=== PATIENT | female | born 1980 | race Caucasian/White ===

== ENCOUNTER 2016-05-08 10:52 | Emergency (ER) | payer OTHER ==
[2016-05-08 11:50] VITALS: BP 140/85
--- NOTE | 2016-05-08 12:12 | UC ---
osvaldo Blanco Timothy, scribed for Hever Spear MD on 05/08/16 at 1141 . Back Pain HPI - HPI Summary HPI Summary: Vandana Huber is a 36 yo female presenting to [facility] with 10/10 back pain for the past 2 weeks worse last night now back spasms (chronic) and with right arm pain with tingling in 3-5 fingers on the right hand. She states she occasionally gets shooting ear pains in the left ear. Her MHx includes UTI, asthma, bronchitis, and pneumonia. - History of Current Complaint Stated Complaint: BACK AND ARM PAIN Time Seen by Provider: 05/08/16 11:36 Hx Obtained From: Patient Hx Last Menstrual Period: 04/17/16 Onset/Duration: Gradual Onset, Lasting Days, Still Present, Worse Since - last night Timing: Constant Severity Initially: Moderate Severity Currently: Moderate Pain Intensity: 10 Pain Scale Used: 0-10 Numeric Back Pain: Is Diffuse, Radiates To - right arm Character: Aching Associated Signs And Symptoms: Positive: Tingling - 3-5 fingers - Allergies/Home Medications Allergies/Adverse Reactions: Allergies Allergy/AdvReac Type Severity Reaction Status Date / Time Tramadol Allergy Intermediate Swelling Verified 05/08/16 11:25 Of Face,Lips,& Throat Codeine AdvReac Intermediate vomit Verified 05/08/16 11:25 Home Medications: Home Medications Beclomethasone 40 MCG MDI(NF) [Qvar 40 MCG MDI(NF)] 1 - 2 puff INH PRN 05/08/16 [History] PMH/Surg Hx/FS Hx/Imm Hx - Additional Past Medical History Additional PMH: degenerative disc disease, arthritis Endocrine History Of: Denies: Diabetes, Thyroid Disease, Hyperthyroidism, Hypothyroidism, Dyslipidemia Cardiovascular History Of: Denies: Cardiac Disorders, Hypertension Respiratory History Of: Reports: Asthma, Bronchitis, Pneumonia Denies: COPD, Pulmonary Embolism GI/ History Of: Denies: Gastroesophageal Reflux, Ulcer, Gastrointestinal Bleed, Gall Bladder Disease, Kidney Stones, Diverticulitis, Renal Disease, Urosepsis Neurological History Of: Denies: TIA, CVA, Dementia, Seizures, Migraine Psychological History Of: Denies: Anxiety, Depression, Bipolar Disorder, Schizophrenia, Post Traumatic Stress Disorder Cancer History Of: Denies: Lung Cancer, Colorectal Cancer, Breast Cancer, Prostate Cancer, Cervical Cancer Other History Of: Negative For: HIV, Hepatitis C - Surgical History Surgical History: Yes Surgery Procedure, Year, and Place: Precancerous moles removed from her back. - Family History Known Family History: Positive: Hypertension, Diabetes, Other - CA, kidney stones - Social History Alcohol Use: Rare Substance Use Type: None Smoking Status (MU): Light Every Day Tobacco Smoker Type: Cigarettes Amount Used/How Often: 8-12 sigarettes/day Length of Time of Smoking/Using Tobacco: 14 years quit for ten years and started back a year ago. Have You Smoked in the Last Year: Yes When Did the Patient Quit Smoking/Using Tobacco: 7 YEARS Household Exposure Type: Cigarettes - Immunization History Most Recent Influenza Vaccination: season Most Recent Tetanus Shot: up to date Review of Systems Constitutional: Negative Skin: Negative Eyes: Negative ENT: Ear Ache - shooting left ear pain Respiratory: Negative Cardiovascular: Negative Gastrointestinal: Negative Genitourinary: Negative Motor: Negative Neurovascular: Negative Musculoskeletal: Other: - back pain radiating into right arm Neurological: Paresthesia - in 3 fingers of right hand Psychological: Negative All Other Systems Reviewed And Are Negative: Yes Physical Exam Triage Information Reviewed: Yes Vital Signs: Initial Vital Signs Temp 98.6 F 05/08/16 11:28 Pulse 78 05/08/16 11:28 Resp 18 05/08/16 11:28 BP 140/85 05/08/16 11:28 Pulse Ox 98 05/08/16 11:28 Vital Signs Reviewed: Yes - Additional Comments VITAL SIGNS: Reviewed. GENERAL: Patient is a well developed and nourished who is lying comfortable in the stretcher. Patient is not in any acute respiratory distress. HEAD AND FACE: Normocephalic EYES: PERRLA, EOMI x 2. EARS: Hearing grossly intact. MOUTH: Oropharynx within normal limits. NECK: Supple, trachea is midline, no adenopathy, no JVD, no carotid bruit. CHEST: Symmetric, no tenderness at palpation LUNGS: Clear to auscultation bilaterally. No wheezing or crackles. CVS: Regular rate and rhythm, S1 and S2 present, no murmurs or gallops appreciated. ABDOMEN: Soft, non-tender. Bowel sounds are normal. No abdominal abnormal pulsations. EXTREMITIES: FROM in all major joints, no edema, no cyanosis or clubbing. NEURO: Alert and oriented x 3. No acute neurological deficits. Speech is normal and follows commands. SKIN: Dry and warm Back: There is no ecchymosis, no deformity, positive paraspinal muscle tenderness in the lumbar and thoracic spine. No vertebral tenderness. No saddle anesthesia. Refuses rectal exam. Straight test is negative. Back Pain Course/Dx - Course Course Of Treatment: Vadnana Huber is a 36 yo female presenting to [facility] with 10/10 back pain for the past 2 weeks worse last night now back spasms (chronic) and with right arm pain with tingling in 3-5 fingers on the right hand. She states she occasionally gets shooting ear pains in the left ear. Her MHx includes UTI, asthma, bronchitis, and pneumonia. I seems the patient has aggrabated her lumbago. She also having and upper back pain mostly in the right side of the upper back. She denies any urinary or fecal dysfunction. She will be given Robaxin and medrol dose pack for her pain. She will continue taking Ibuprofen as needed. At this point I discussed all the findings with the patient. Patient was instructed to return to the emergency room immediately if any of the symptoms return or worsens. Patient understands and agrees. Patient is able to ambulate in the ER. Plan of care was discussed with the patient and patient understands and agrees. All questions were answered at patient satisfaction. There were no further complaints or concerns. Neurological exam before discharge: Patient is alert and oriented x 3. No acute neurological deficits. Patient is hemodynamically stable. Patient is to follow up with primary care physician in the next 2 3 days. He understands and agrees. - Differential Dx/Diagnosis Differential Diagnosis/HQI/PQRI: Herniated Disc, Strain, Sprain Provider Diagnoses: Lower and upper back strain. Discharge - Discharge Plan Condition: Stable Disposition: HOME Prescriptions: Methocarbamol TAB* [Robaxin TAB*] 500 mg PO TID #9 tab Methylprednisolone [Medrol Dosepak 4 MG*] 0 mg PO .SEE MAURO INSTRUCTION #1 mauro Patient Education Materials: Back Pain (ED), Lower Back Exercises (ED) Referrals: Aniceto Bliss MD [Primary Care Provider] - 2 Days Additional Instructions: Please follow up with your primary care physician regarding your visit to urgent care today. Return to urgent care or the emergency department with any new or recurring symptoms. The documentation as recorded by the osvaldo arias Timothy accurately reflects the service I personally performed and the decisions made by me, Hever Spear MD.
== END 2016-05-08 12:30 | disposition home or self-care (01) ==
LOC: UCEAST 10:52
DX: S39.012A Strain of muscle, fascia and tendon of lower back, initial encounter (principal); S29.012A Strain of muscle and tendon of back wall of thorax, initial encounter; X58.XXXA Exposure to other specified factors, initial encounter; Y93.9 Activity, unspecified; Y92.9 Unspecified place or not applicable; Z87.440 Personal history of urinary (tract) infections; J45.909 Unspecified asthma, uncomplicated; Z88.5 Allergy status to narcotic agent; F17.210 Nicotine dependence, cigarettes, uncomplicated
CPT/HCPCS: 99212; G0463

== ENCOUNTER 2016-05-18 16:14 | Emergency (ER) | payer OTHER ==
[2016-05-18 16:48] VITALS: BP 122/71
--- NOTE | 2016-05-18 16:52 | UC ---
Shoulder Pain HPI - HPI Summary HPI Summary: PT WITH RIGHT POSTERIOR SHOULDER PAIN AND PARESTHESIAS IN RIGHT ARM FOR SEVERAL WEEKS. HAS BEEN SEEN FOR THIS 3 TIMES ALREADY - TX WITH MEDROL DOSE PACK, PREDNISONE, MUSCLE RELAXERS WITH NO RELIEF. HAS PCP APPT IN 2 DAYS. - History of Current Complaint Chief Complaint: UCUpperExtremity Stated Complaint: SHOULDER PAIN Time Seen by Provider: 05/18/16 16:45 Hx Obtained From: Patient Hx Last Menstrual Period: HAS IT NOW Onset/Duration: Sudden Onset, Lasting Weeks, Still Present Timing: Constant Severity Initially: Moderate Severity Currently: Severe Pain Intensity: 10 - IN NO ACUTE DISTRESS Pain Scale Used: 0-10 Numeric Character: Spasmodic, Burning Aggravating Factor(s): Nothing Alleviating Factor(s): Nothing Associated Signs And Symptoms: Positive: Numbness/Tingling Related History: Dominant Hand Right - Allergies/Home Medications Allergies/Adverse Reactions: Allergies Allergy/AdvReac Type Severity Reaction Status Date / Time Tramadol Allergy Intermediate Swelling Verified 05/18/16 16:38 Of Face,Lips,& Throat Codeine AdvReac Intermediate vomit Verified 05/18/16 16:38 Home Medications: Home Medications Norethindrone (Contraceptive) [Norethindrone] 1 tab PO QAM 05/18/16 [History Confirmed 05/18/16] predniSONE TAB* [Deltasone TAB*] 1 tab PO DAILY 05/18/16 [History Confirmed 03/05] PMH/Surg Hx/FS Hx/Imm Hx Endocrine History Of: Denies: Diabetes, Thyroid Disease, Hyperthyroidism, Hypothyroidism, Dyslipidemia Cardiovascular History Of: Denies: Cardiac Disorders, Hypertension Respiratory History Of: Reports: Asthma, Bronchitis, Pneumonia Denies: COPD, Pulmonary Embolism GI/ History Of: Denies: Gastroesophageal Reflux, Ulcer, Gastrointestinal Bleed, Gall Bladder Disease, Kidney Stones, Diverticulitis, Renal Disease, Urosepsis Neurological History Of: Denies: TIA, CVA, Dementia, Seizures, Migraine Psychological History Of: Denies: Anxiety, Depression, Bipolar Disorder, Schizophrenia, Post Traumatic Stress Disorder Cancer History Of: Denies: Lung Cancer, Colorectal Cancer, Breast Cancer, Prostate Cancer, Cervical Cancer Other History Of: Negative For: HIV, Hepatitis C - Surgical History Surgical History: Yes Surgery Procedure, Year, and Place: Precancerous moles removed from her back. - Family History Known Family History: Positive: Hypertension, Diabetes, Other - CA, kidney stones - Social History Alcohol Use: Rare Substance Use Type: None Smoking Status (MU): Heavy Every Day Tobacco Smoker Type: Cigarettes Amount Used/How Often: 8-12 sigarettes/day Length of Time of Smoking/Using Tobacco: 1/2 PPD. 2+ YEARS Have You Smoked in the Last Year: Yes When Did the Patient Quit Smoking/Using Tobacco: 7 YEARS Household Exposure Type: Cigarettes - Immunization History Most Recent Influenza Vaccination: season Most Recent Tetanus Shot: up to date Review of Systems Constitutional: Negative Skin: Negative Respiratory: Negative Cardiovascular: Negative Gastrointestinal: Negative Musculoskeletal: Myalgia Neurological: Paresthesia, Numbness All Other Systems Reviewed And Are Negative: Yes Physical Exam Triage Information Reviewed: Yes Appearance: Well-Appearing, No Pain Distress, Well-Nourished Vital Signs: Initial Vital Signs Temp 98.6 F 05/18/16 16:42 Pulse 80 05/18/16 16:42 Resp 16 05/18/16 16:42 BP 122/71 05/18/16 16:42 Pulse Ox 100 05/18/16 16:42 Eyes: Positive: Conjunctiva Clear ENT: Positive: Hearing grossly normal Neck: Positive: Supple Respiratory: Positive: No respiratory distress, No accessory muscle use Cardiovascular: Positive: Pulses Normal Abdomen Description: Positive: Soft Musculoskeletal: Positive: ROM Intact, No Edema, Other: - TTP DIFFUSELY OVER RIGHT SHOULDER. Neurological: Positive: Alert, Other: - POSITIVE TINELS AND PHALENS OVER ELBOW AND WRIST Psychological: Positive: Age Appropriate Behavior Skin: Negative: rashes Shoulder Course/Dx - Differential Dx/Diagnosis Differential Diagnosis/HQI/PQRI: Thoracic Outlet Syndrome Provider Diagnoses: PARESTHESIAS Discharge - Discharge Plan Condition: Stable Disposition: HOME Prescriptions: Gabapentin CAP(*) [Neurontin 300 CAP(*)] 300 mg PO TID #60 cap Hydrocodone-Acetaminophen [Lorcet 5-325 mg] 1 tab PO QID PRN #20 tab MDD 4 PRN Reason: Pain Ketorolac TAB (NF) [Toradol TAB (NF)] 10 mg PO Q8H #15 tab Patient Education Materials: Paresthesia (ED) Referrals: Aniceto Bliss MD [Primary Care Provider] - 2 Days Aniceto Jean MD [Medical Doctor] - 1 Week Additional Instructions: CALL [facility] MORNING FOR AN APPT TO BE EVALUATED.
[2016-05-18] MEDS ORDERED: Ketorolac INJ* 60 MG/2 ML VIAL IM ONE (17:29)
== END 2016-05-18 18:00 | disposition home or self-care (01) ==
LOC: UCEAST 16:14
DX: R20.2 Paresthesia of skin (principal); M25.511 Pain in right shoulder; Z88.5 Allergy status to narcotic agent; Z87.891 Personal history of nicotine dependence
CPT/HCPCS: 96372; 99213; G0463; J1885

== ENCOUNTER 2016-06-13 07:41 | Observation (INO) | payer OTHER ==
[~2016-06-13 07:41] MED LIST: Buffered Lidocaine 1% SYRIN* 3 ML/SYR SYRINGE INTRADERM ONE; Dexamethasone IV* 4 MG/ML 1 ML (4 MG) IV SLOW PU ONE; Dexamethasone IV* 4 MG/ML 1 ML (4 MG) ONE; Famotidine IV* 10 MG/ML 2 ML (20 mg) IV ONE; Famotidine IV* 10 MG/ML 2 ML (20 mg) ONE; Levalbuterol 0.63MG/3ML NEB INH ONE; Levalbuterol 1.25MG/0.5ML NEB ONE; Metoclopramide TAB* 10 MG PO ONE; ceFAZolin 2 GM PREMIX(*) 2 GM/50 ML BAG IVPB ONE
[2016-06-13] MEDS ORDERED: Lidocain 1% EPI 1:100,000 * 30 ML MDV ONE (08:20)
[2016-06-13] MEDS ORDERED: Bacitracin IV* 50,000 UNITS INJ ONE (08:21)
[2016-06-13] MEDS ORDERED: Thrombin 5,000 UNITS* 1 APPLIC KIT - topical use - TOPICAL ONE (08:21)
[2016-06-13 08:36] LABS: UR Preg Kit Lot# 6030156
[2016-06-13 08:37] LABS: Manual Entry Verification AS; UR Preg Internal Control QC Line Present
[2016-06-13] MEDS ORDERED: Rocuronium* 10 MG/ML VIAL ONE (08:46)
[2016-06-13] MEDS ORDERED: Propofol* 10 MG/ML 20 ML BTL IV PUSH ONE (08:46)
[2016-06-13] MEDS ORDERED: Midazolam* 1 MG/ML 2 ML VIAL (2 MG) ONE (08:46)
[2016-06-13] MEDS ORDERED: Lidocaine 2% PF * 5 ML VIAL ONE (08:46)
[2016-06-13] MEDS ORDERED: fentaNYL* 50 MCG/ML 5 ML VIAL (250 MCG VIAL) ONE ×2 (08:47→10:59)
[2016-06-13] MEDS ORDERED: PROCHLORPERAZINE INJ 5 MG/ML 2 ML VIAL IV PRN (08:53)
[2016-06-13] MEDS ORDERED: HYDROcodone/ACETAMIN 5-325 MG* 1 TAB PO PRN ×2 (08:53→10:36)
[2016-06-13] MEDS ORDERED: Levalbuterol 0.63MG/3ML NEB INH PRN (08:53)
[2016-06-13] MEDS ORDERED: Phenylephrine IV* 40 MCG/ML 10 ML SYRINGE ONE (09:31)
[2016-06-13] MEDS ORDERED: Ondansetron INJ* 2 MG/ML VIAL ONE (09:45)
[2016-06-13] MEDS ORDERED: EPHEDrine (Pressors)* 50 MG/ML VIAL ONE (09:57)
[2016-06-13] MEDS ORDERED: Neostigmine Methylsulfate* 2 MG/2 ML SYRINGE ONE (10:34)
[2016-06-13] MEDS ORDERED: Glycopyrrolate IV* 0.2 MG/ML 1 ML VIAL ONE (10:34)
[2016-06-13] MEDS ORDERED: Acetaminophen TAB* 325 MG PO PRN (10:36)
[2016-06-13] MEDS ORDERED: Magnesium Hydroxide LIQ* 30 ML UDC PO PRN (10:36)
[2016-06-13] MEDS ORDERED: Zolpidem TAB* 10 MG PO PRN (10:36)
[2016-06-13] MEDS ORDERED: Ondansetron INJ* 2 MG/ML VIAL IV PRN (10:36)
[2016-06-13] MEDS ORDERED: oxyCODONE/Acetamin 5/325 MG* TAB ONE (10:59)
[2016-06-13] MEDS: oxyCODONE/Acetamin 5/325 MG* TAB PO PRN ×3 (11:03→19:13)
[2016-06-13] MEDS: fentaNYL* 50 MCG/ML 2 ML VIAL (100 MCG VIAL) IV PRN ×4 (11:05→12:12)
[2016-06-13] MEDS ORDERED: Morphine INJ* 2 MG/ML 1 ML SYRINGE IV PRN (11:14)
[2016-06-13] MEDS ORDERED: PROCHLORPERAZINE INJ 5 MG/ML 2 ML VIAL ONE (11:48)
--- NOTE | 2016-06-13 13:06 | RAD ---
Indication: RIGHT posterior C6-C7 cervical discectomy. Comparison: May 27, 2016 MRI. Technique: Intraoperative crosstable lateral radiographs of the cervical spine. Report: 0955 hours exam: Endotracheal tube and probable temperature sensor noted. Posterior instrument at the cephalocaudal level of the C6 spinous process. Conspicuity of the C6-C7 disc level is limited due to superimposed tissues. Negative for cervical spine subluxation at any level. 1035 hours exam: Negative for cervical spine subluxation at any level. Previous metallic instrument no longer visualized. Conspicuity of the C6-C7 disc level is limited due to superimposed tissues. Potential surgical drain within the posterior soft tissues however this could also represent an extrinsic device. IMPRESSION: Intraoperative control films.
[2016-06-13] MEDS ORDERED: Mouth Piece, Nicotine* 1 EACH CARTRIDGE ONE (14:08)
[2016-06-13] MEDS ORDERED: Nicotine Inhaler* 10 MG AMP ONE (14:08)
[2016-06-13] MEDS ORDERED: Morphine INJ* 4 MG/ML 1 ML SYRINGE ONE (14:08)
[2016-06-13] MEDS ORDERED: Nicotine Inhaler* 10 MG AMP INH PRN (14:17)
[2016-06-13] MEDS ORDERED: Morphine INJ* 4 MG/ML 1 ML SYRINGE IV PRN (14:40)
[2016-06-13] MEDS ORDERED: Cyclobenzaprine TAB* 10 MG PO PRN (16:01)
[2016-06-14] MEDS: oxyCODONE/Acetamin 5/325 MG* TAB PO PRN ×4 (00:22→12:28)
[2016-06-14 11:55] VITALS: BP 103/54
--- NOTE | 2016-06-14 12:11 | PN ---
Progress Note - Progress Note Note: NEUROSURGERY PROGRESS NOTE Some neck pain at incision site. Right arm/hand symptoms markedly improved from preop. Some residual tingling. Taking PO and pain meds helping. AVSS NAD AAO FROM neck Dressing C/D/I GEOVANY with small s/s fluid Intact neuro s/p cerv LF. -discharge to home Gigi Mann MD, [facility] Neurosurgery (covering [place])
--- NOTE | 2016-06-26 21:44 | OP ---
DATE OF OPERATION: 06/13/16 - ROOM #331 DATE OF : 82 SURGEON: Dr. Aniceto Marcelo. CARGO BRACER: DEXTER Hu ANESTHESIOLOGIST: Dagmar Pelletier MD ANESTHESIA: General. PRE-OP DIAGNOSIS: Herniated nucleus pulposus, C6-7 on the right. POST-OP DIAGNOSIS: Herniated nucleus pulposus, C6-7 on the right. OPERATIVE PROCEDURE: Posterior cervical diskectomy, C6-7 on the right with microdissection. DESCRIPTION OF PROCEDURE: After satisfactory general anesthesia was obtained, the patient was placed on the operating table in a prone position with the chest supported on chest rolls and the head maintained with slight neck flexion utilizing the Lopez head rest. The posterior cervical region was then clipped, prepped, and draped in a manner for posterior cervical diskectomy and a skin incision outlined from C6 to C7. This incision was infiltrated with 1% Xylocaine with epinephrine after which it was turned down sharply to the level of the cervical fascia. The fascia was divided along the spinous processes of C6 and C7 and the paraspinal musculature stripped away from these posterior elements using the periosteal elevator and monopolar cautery. An intraoperative x-ray was obtained verifying proper interspace localization after which a partial hemilaminectomy was carried out by removing the inferior aspect of the C6 lamina and the medial aspect of the facet complex with a combination of the Midas Chepe drill and Kerrison rongeurs. A generous foraminotomy was carried out over the C7 nerve root. At this point of the surgery, the operating microscope was brought into the field and the remainder of the procedure was done under microscopic visualization. Utilizing microdissection, the epidural venous structures were coagulated and divided. Projecting into the axillary region of the exposure was a subcapsular herniation of the disk material. The thinly stretched posterior longitudinal ligament was opened and multiple fragments of the disk material were removed from beneath the C7 nerve root. It was felt that an excellent decompression had been achieved. After assuring adequate hemostasis, the wound was thoroughly irrigated, after which a piece of Gelfoam was placed over the laminectomy defect. A drain was placed in the epidural space and tunneled out toward the right side. The fascia was then reapproximated with 0 Vicryl suture. The subcutaneous tissue was closed with 2-0 Vicryl suture, and the skin closed with skin clips. The estimated blood loss was less than 50 cc, and the final sponge, padding, and needle counts were correct. The patient was taken to the recovery room, extubated and in stable condition. [id number]/[facility] #: [id number] MTDD
== END 2016-06-14 13:35 | disposition home or self-care (01) ==
LOC: OR 07:41 → SSU 10:36
PROVIDERS: ADMIT Neurological Surgery; ATTEND Neurological Surgery
DX: M50.123 Cervical disc disorder at C6-C7 level with radiculopathy (principal); F17.200 Nicotine dependence, unspecified, uncomplicated; Z88.5 Allergy status to narcotic agent; J45.909 Unspecified asthma, uncomplicated
CPT/HCPCS: 72020; 81025; 88304; A9270-GY; J0690; J0780; J1100; J2250; J2270; J2405; J2704; J3010

== ENCOUNTER 2016-06-15 07:44 | Emergency (ER) | payer OTHER ==
--- NOTE | 2016-06-15 08:45 | ED ---
Neck Pain - History of Current Complaint Chief Complaint: EDBackInjuryPain Stated Complaint: DIZZY,NAUSEA, PAIN Time Seen by Provider: 06/15/16 07:48 Hx Obtained From: Patient Hx Last Menstrual Period: HAS IT NOW Onset/Duration Of Injury/Symptoms: Hours - awoke this am with severe R sided neck and upper shoulder pain. She is s/p Discectomy C6-C7 2 days ago. Pain was managable with percocet until this am. She did take 2 percocet at 6am this am with some relief, but caused some nausea. Mechanism Of Injury: No Known Trauma Timing: Constant Onset/Duration: Started hours ago - 3-4 hours Pain Intensity: 8 Location: Discrete At: - R side neck and shoulder Character: Stiff, Spasmotic, Throbbing Aggravating Factors: Position, Movement Alleviating Factors: Position, Other: - percocet Associated Signs & Symptoms: Positive: Negative. Negative: Fever Related History: Similar Episode/Dx As: - disc disease - Allergies/Home Medications Allergies/Adverse Reactions: Allergies Allergy/AdvReac Type Severity Reaction Status Date / Time Tramadol Allergy Intermediate Swelling Verified 06/13/16 08:04 Of Face,Lips,& Throat Codeine AdvReac Intermediate vomit Verified 06/13/16 08:04 PMH/Surg Hx/FS Hx/Imm Hx Previously Healthy: Yes Endocrine/Hematology History: Reports: Hx Anemia - in the past Denies: Hx Diabetes, Hx Thyroid Disease Cardiovascular History: Denies: Hx Hypertension, Hx Pacemaker/ICD Respiratory History: Reports: Hx Asthma - will bring inhalers, Hx Pneumonia Denies: Hx Chronic Obstructive Pulmonary Disease (COPD), Hx Lung Cancer, Hx Pulmonary Embolism GI History: Reports: Hx Gastroesophageal Reflux Disease, Other GI Disorders - sdifficulty swallowing at times Denies: Hx Gall Bladder Disease, Hx Gastrointestinal Bleed, Hx Ulcer, Hx Urosepsis History: Denies: Hx Kidney Stones, Hx Renal Disease Musculoskeletal History: Reports: Hx Arthritis - right knee and foot Denies: Hx Tendonitis, Other Musculoskeletal History Sensory History: Denies: Hx Contacts or Glasses, Hx Hearing Aid Opthamlomology History: Denies: Hx Contacts or Glasses Neurological History: Reports: Hx Headaches, Hx Migraine Denies: Hx Dementia, Hx Seizures, Hx Transient Ischemic Attacks (TIA) Psychiatric History: Reports: Hx Anxiety, Hx Depression Denies: Hx Panic Disorder, Hx Schizophrenia, Hx Bipolar Disorder - Surgical History Surgery Procedure, Year, and Place: Precancerous moles removed from her back. Hx Anesthesia Reactions: No Infectious Disease History: No Infectious Disease History: Denies: Hx Clostridium Difficile, Hx Hepatitis, Hx Human Immunodeficiency Virus (HIV), Hx of Known/Suspected MRSA, Hx Shingles, Hx Tuberculosis, Hx Known/ Suspected VRE, Hx Known/Suspected VRSA, History Other Infectious Disease, Traveled Outside the [place] in Last 30 Days - Family History Known Family History: Positive: Hypertension, Diabetes, Other - CA, kidney stones - Social History Occupation: Employed Full-time - [employer] Lives: With Family Alcohol Use: Rare Alcohol Amount: social glasses of wine Substance Use Type: Reports: Marijuana Substance Use Comment - Amount & Last Used: to help her sleep Smoking Status (MU): Heavy Every Day Tobacco Smoker Type: Cigarettes Amount Used/How Often: .pack aday for 10 years Length of Time of Smoking/Using Tobacco: 1/2 PPD. 2+ YEARS Have You Smoked in the Last Year: Yes Cessation Counseling: Patient Advised to Stop Review of Systems Constitutional: Negative Negative: Fever, Chills Cardiovascular: Negative Negative: Palpitations, Chest Pain Respiratory: Negative Negative: Shortness Of Breath, Cough Positive: Nausea. Negative: Abdominal Pain Positive: Decreased ROM - C-spine Skin: Negative Negative: Rash Positive: Weakness - R arm x months Psychological: Normal All Other Systems Reviewed And Are Negative: Yes Physical Exam Triage Information Reviewed: Yes Vital Signs On Initial Exam: Initial Vitals Temp Pulse Resp BP Pulse Ox 98.1 F 66 18 97/54 99 06/15/16 07:47 06/15/16 07:47 06/15/16 07:47 06/15/16 07:47 06/15/16 07:47 Vital Signs Reviewed: Yes Appearance: Positive: Well-Appearing, No Pain Distress - pt is sleeping lightly until approached, Well-Nourished Skin: Positive: Warm, Skin Color Reflects Adequate Perfusion, Dry, Other - no redness or drainage surgical site post neck (dry clean dressing intact) Neck: Positive: Other: - decreased ROM, pt keeps neck in POC, does not flex or ext neck d/t pain Respiratory/Lung Sounds: Positive: Clear to Auscultation Cardiovascular: Positive: Normal, RRR, Pulses are Symmetrical in both Upper and Lower Extremities Neurological: Positive: Normal, Sensory/Motor Intact, Alert, Oriented to Person Place, Time Psychiatric: Positive: Normal Diagnostics - Vital Signs Vital Signs Temp Pulse Resp BP Pulse Ox 06/15/16 07:50 98.1 F 66 18 97/54 98 06/15/16 07:47 98.1 F 66 18 97/54 99 - Laboratory Result Diagrams: 06/15/16 09:20 Lab Statement: Any lab studies that have been ordered have been reviewed, and results considered in the medical decision making process. Re-Evaluation - Re-Evaluation First Eval Change: Unchanged - pt complains of nausea, no change in pain will Rx zofran. Pat will take flexeril from own medications she brought with her Second Eval Change: Improved - resting quietly. states pain has improved, no nausea at this time Neck Course/Dx - Course Course Of Treatment: iStop Reference #: [id number] - Diagnoses Differential Dx/HQI/PQRI: Positive: Other - muscle spasm post surgical pain cellulitis Provider Diagnoses: Neck pain on right side - Physician Notifications Discussed Care Of Patient With: neck pain Discharge - Discharge Plan Condition: Improved Disposition: HOME Prescriptions: Ondansetron ODT TAB* [Zofran 4 MG Odt TAB*] 4 mg PO Q6H PRN #24 tab.odt PRN Reason: Nausea Patient Education Materials: Neck Pain (ED) Referrals: Aniceto Bliss MD [Primary Care Provider] - Aniceto Marcelo MD [Medical Doctor] - (as previously scheduled) Additional Instructions: Take percocet and flexeril as prescribed Use zofran for nausea as prescribed apply heat to shoulders for muscle spasm Return to ER if you develop a fever or pain increases or your bandage becomes soiled or wet.
[2016-06-15] MEDS ORDERED: Ondansetron INJ* 2 MG/ML VIAL IV ONE (09:26)
[2016-06-15 09:29] LABS: Hematocrit 39 % (35-47); Hemoglobin 12.7 g/dl (12.0-16.0); Mean Corpuscular HGB Conc 33 g/dl (31-36); Mean Corpuscular Hemoglobin 28 pg (27-31); Mean Corpuscular Volume 86 fL (80-97); Mean Platelet Volume 8 um3 (7.4-10.4); Red Blood Count 4.52 10^6/ul (4.0-5.4); Red Cell Distribution Width 14 % (10.5-15); White Blood Count 11.1 10^3/ul (3.5-10.8)
[2016-06-15 09:35] LABS: Add Diff/Slide Review? Slide Review Added; Comments Flag Yes
[2016-06-15 11:39] VITALS: BP 119/67
== END 2016-06-15 11:38 | disposition home or self-care (01) ==
LOC: ED 07:44
DX: R42 Dizziness and giddiness (principal); R11.0 Nausea; F17.210 Nicotine dependence, cigarettes, uncomplicated; M54.2 Cervicalgia
CPT/HCPCS: 36415; 85025; 96374; 99283; J2405

== ENCOUNTER 2016-07-01 14:44 | Emergency (ER) | payer OTHER ==
[2016-07-01] MEDS ORDERED: NS 0.9% 1000 ML* 1,000 ML IV ONE (17:16)
[2016-07-01] MEDS ORDERED: Albuterol/Ipratropium NEB.SOL* Albuterol 2.5 MG/Ipratropium 0.5 MG 3 ML INH ONE (17:17)
[2016-07-01 17:25] LABS: Hematocrit 43 % (35-47); Hemoglobin 14.2 g/dl (12.0-16.0); Mean Corpuscular HGB Conc 33 g/dl (31-36); Mean Corpuscular Hemoglobin 29 pg (27-31); Mean Corpuscular Volume 85 fL (80-97); Mean Platelet Volume 8 um3 (7.4-10.4); Red Blood Count 4.99 10^6/ul (4.0-5.4); Red Cell Distribution Width 14 % (10.5-15); White Blood Count 7.6 10^3/ul (3.5-10.8)
[2016-07-01 17:46] LABS: ALT 8 U/L (7-52); AST 10 U/L (13-39); Albumin 4.1 g/dL (3.2-5.2); Alkaline Phosphatase 64 U/L (34-104); Anion Gap 3 mmol/L (2-11); BUN/Creatinine Ratio 16.3 (8-20); Blood Urea Nitrogen 14 mg/dL (6-24); CO2 Carbon Dioxide 29 mmol/L (22-32); Calcium 8.9 mg/dL (8.6-10.3); Chloride 105 mmol/L (101-111); Creatine Kinase 39 U/L (10-223); EGFR African American 96.6 (>60); EGFR Non-African American 75.1 (>60); Globulin 2.8 g/dL (2-4); Glucose 90 mg/dL (70-100); Potassium 3.9 mmol/L (3.5-5.0); Sodium 137 mmol/L (133-145); Total Protein 6.9 g/dL (6.4-8.9)
--- NOTE | 2016-07-01 18:59 | RAD ---
Indication: Shortness of breath. 2 views of the chest including dual energy PA views demonstrate no mediastinal shift. Heart is of normal size and configuration. Lung stahl demonstrate no pleural fluid, pneumonia or pneumothorax. No changes noted since November 01, 2014. IMPRESSION: No active cardiopulmonary disease is noted.
[2016-07-01] MEDS ORDERED: methylPREDNISolone 125 MG* 2 ML VIAL IV ONE (19:19)
--- NOTE | 2016-07-01 19:49 | ED ---
Tee Blanco Michael, scribed for Kristopher Martinez MD on 07/01/16 at 1702 . HPI Chest Pain - HPI Summary HPI Summary: 36 y/o female comes to the ED presenting with shortness of breath for 1 day. Associated with chest tightness and heaviness. She also c/o cough, and nausea. She denies fever, bilater LE pain/swelling, vomiting, diarrhea, and abd pain. The pt recently had neck surgery to fix a ruptured disc on 06/13/16. She also takes control. The FHx is significant for blood clots. - History of Current Complaint Chief Complaint: EDChestWallPain Time Seen by Provider: 07/01/16 16:42 Hx Obtained From: Patient, Medical Records Onset/Duration: Started Days Ago Timing: Constant Initial Severity: Mild Current Severity: Mild Pain Intensity: 0 Pain Scale Used: 0-10 Numeric Chest Pain Location: Diffuse Chest Pain Radiates: No Character: Heaviness, Tightness Aggravating Factor(s): Nothing Alleviating Factor(s): Nothing Associated Signs and Symptoms: Positive: Negative - fever, bilater LE pain/ swelling, vomiting, diarrhea, and abd pain, Chest Pain, Shortness of Breath, Nausea, Cough - Additional Pertinent History Primary Care Physician: [id number] - Allergy/Home Medications Allergies/Adverse Reactions: Allergies Allergy/AdvReac Type Severity Reaction Status Date / Time Tramadol Allergy Intermediate Swelling Verified 06/13/16 08:04 Of Face,Lips,& Throat Codeine AdvReac Intermediate vomit Verified 06/13/16 08:04 PMH/Surg Hx/FS Hx/Imm Hx Endocrine/Hematology History: Reports: Hx Anemia - in the past Denies: Hx Diabetes, Hx Thyroid Disease Cardiovascular History: Denies: Hx Hypertension, Hx Pacemaker/ICD Respiratory History: Reports: Hx Asthma - will bring inhalers, Hx Pneumonia Denies: Hx Chronic Obstructive Pulmonary Disease (COPD), Hx Lung Cancer, Hx Pulmonary Embolism GI History: Reports: Hx Gastroesophageal Reflux Disease, Other GI Disorders - sdifficulty swallowing at times Denies: Hx Gall Bladder Disease, Hx Gastrointestinal Bleed, Hx Ulcer, Hx Urosepsis History: Denies: Hx Kidney Stones, Hx Renal Disease Musculoskeletal History: Reports: Hx Arthritis - right knee and foot Denies: Hx Tendonitis, Other Musculoskeletal History Sensory History: Denies: Hx Contacts or Glasses, Hx Hearing Aid Opthamlomology History: Denies: Hx Contacts or Glasses Neurological History: Reports: Hx Headaches, Hx Migraine Denies: Hx Dementia, Hx Seizures, Hx Transient Ischemic Attacks (TIA) Psychiatric History: Reports: Hx Anxiety, Hx Depression Denies: Hx Panic Disorder, Hx Schizophrenia, Hx Bipolar Disorder - Surgical History Surgery Procedure, Year, and Place: Precancerous moles removed from her back. Hx Anesthesia Reactions: No Infectious Disease History: Denies: Hx Clostridium Difficile, Hx Hepatitis, Hx Human Immunodeficiency Virus (HIV), Hx of Known/Suspected MRSA, Hx Shingles, Hx Tuberculosis, Hx Known/ Suspected VRE, Hx Known/Suspected VRSA, History Other Infectious Disease, Traveled Outside the [place] in Last 30 Days - Family History Known Family History: Positive: Hypertension, Diabetes, Other - CA, kidney stones, blood clots - Social History Occupation: Unemployed Lives: With Family Alcohol Use: Rare Alcohol Amount: social glasses of wine Substance Use Type: Reports: Marijuana Substance Use Comment - Amount & Last Used: to help her sleep Smoking Status (MU): Heavy Every Day Tobacco Smoker Type: Cigarettes Amount Used/How Often: .pack aday for 10 years Length of Time of Smoking/Using Tobacco: 1/2 PPD. 2+ YEARS Have You Smoked in the Last Year: Yes Review of Systems Positive: Shortness Of Breath, Cough Positive: Nausea All Other Systems Reviewed And Are Negative: Yes Physical Exam Triage Information Reviewed: Yes Vital Signs On Initial Exam: Initial Vitals Temp Resp BP Pulse Ox 98.2 F 20 140/80 99 07/01/16 14:46 07/01/16 14:46 07/01/16 14:46 07/01/16 14:46 Vital Signs Reviewed: Yes Appearance: Positive: Well-Appearing - comfortable and talking in full sentences., No Pain Distress, Well-Nourished Skin: Positive: Warm, Skin Color Reflects Adequate Perfusion, Dry Head/Face: Positive: Normal Head/Face Inspection Eyes: Positive: EOMI, BRYAN, Conjunctiva Clear ENT: Positive: Pharynx normal, TMs normal Neck: Positive: Supple, Nontender Respiratory/Lung Sounds: Positive: Clear to Auscultation, Breath Sounds Present. Negative: Rales, Rhonchi, Wheezes Cardiovascular: Positive: RRR, Pulses are Symmetrical in both Upper and Lower Extremities. Negative: Murmur, Rub Abdomen Description: Positive: Nontender, No Organomegaly, Soft. Negative: Distended, Guarding, Peritoneal Signs Bowel Sounds: Positive: Present Musculoskeletal: Positive: Strength/ROM Intact Neurological: Positive: Sensory/Motor Intact, Alert, Oriented to Person Place, Time, Normal Gait. Negative: Cerebellar Dysfunction Psychiatric: Positive: Affect/Mood Appropriate Diagnostics - Vital Signs Vital Signs Temp Pulse Resp BP Pulse Ox 07/01/16 15:50 97.6 F 80 16 123/68 100 07/01/16 14:46 98.2 F 20 140/80 99 - Laboratory Lab Results: Lab Results 07/01/16 07/01/16 07/01/16 Range/Units 17:11 17:11 17:11 WBC 7.6 (3.5-10.8) 10^3/ul RBC 4.99 (4.0-5.4) 10^6/ul Hgb 14.2 (12.0-16.0) g/dl Hct 43 (35-47) % MCV 85 (80-97) fL MCH 29 (27-31) pg MCHC 33 (31-36) g/dl RDW 14 (10.5-15) % Plt Count 247 (150-450) 10^3/ul MPV 8 (7.4-10.4) um3 Neut % (Auto) 65.2 (38-83) % Lymph % (Auto) 24.4 L (25-47) % Dickenson % (Auto) 6.0 (1-9) % Eos % (Auto) 3.3 (0-6) % Baso % (Auto) 1.1 (0-2) % Absolute Neuts (auto) 4.9 (1.5-7.7) 10^3/ul Absolute Lymphs (auto) 1.8 (1.0-4.8) 10^3/ul Absolute Monos (auto) 0.5 (0-0.8) 10^3/ul Absolute Eos (auto) 0.2 (0-0.6) 10^3/ul Absolute Basos (auto) 0.1 (0-0.2) 10^3/ul Absolute Nucleated RBC 0.03 10^3/ul Nucleated RBC % 0.4 D-Dimer, Quantitative < 200 (Less Than 230) ng/mL Sodium 137 (133-145) mmol/L Potassium 3.9 (3.5-5.0) mmol/L Chloride 105 (101-111) mmol/L Carbon Dioxide 29 (22-32) mmol/L Anion Gap 3 (2-11) mmol/L BUN 14 (6-24) mg/dL Creatinine 0.86 (0.51-0.95) mg/dL Est GFR ( Amer) 96.6 (>60) Est GFR (Non-Af Amer) 75.1 (>60) BUN/Creatinine Ratio 16.3 (8-20) Glucose 90 (70-100) mg/dL Lactic Acid (0.5-2.0) mmol/L Calcium 8.9 (8.6-10.3) mg/dL Total Bilirubin 0.30 (0.2-1.0) mg/dL AST 10 L (13-39) U/L ALT 8 (7-52) U/L Alkaline Phosphatase 64 (34-104) U/L Total Creatine Kinase 39 (10-223) U/L CK-MB (CK-2) 0.8 (0.6-6.3) ng/mL Troponin I 0.00 (<0.04) ng/mL Total Protein 6.9 (6.4-8.9) g/dL Albumin 4.1 (3.2-5.2) g/dL Globulin 2.8 (2-4) g/dL Albumin/Globulin Ratio 1.5 (1-3) Beta HCG, Quant < 0.60 mIU/mL 07/01/16 Range/Units 17:11 WBC (3.5-10.8) 10^3/ul RBC (4.0-5.4) 10^6/ul Hgb (12.0-16.0) g/dl Hct (35-47) % MCV (80-97) fL MCH (27-31) pg MCHC (31-36) g/dl RDW (10.5-15) % Plt Count (150-450) 10^3/ul MPV (7.4-10.4) um3 Neut % (Auto) (38-83) % Lymph % (Auto) (25-47) % Dickenson % (Auto) (1-9) % Eos % (Auto) (0-6) % Baso % (Auto) (0-2) % Absolute Neuts (auto) (1.5-7.7) 10^3/ul Absolute Lymphs (auto) (1.0-4.8) 10^3/ul Absolute Monos (auto) (0-0.8) 10^3/ul Absolute Eos (auto) (0-0.6) 10^3/ul Absolute Basos (auto) (0-0.2) 10^3/ul Absolute Nucleated RBC 10^3/ul Nucleated RBC % D-Dimer, Quantitative (Less Than 230) ng/mL Sodium (133-145) mmol/L Potassium (3.5-5.0) mmol/L Chloride (101-111) mmol/L Carbon Dioxide (22-32) mmol/L Anion Gap (2-11) mmol/L BUN (6-24) mg/dL Creatinine (0.51-0.95) mg/dL Est GFR ( Amer) (>60) Est GFR (Non-Af Amer) (>60) BUN/Creatinine Ratio (8-20) Glucose (70-100) mg/dL Lactic Acid 1.0 (0.5-2.0) mmol/L Calcium (8.6-10.3) mg/dL Total Bilirubin (0.2-1.0) mg/dL AST (13-39) U/L ALT (7-52) U/L Alkaline Phosphatase (34-104) U/L Total Creatine Kinase (10-223) U/L CK-MB (CK-2) (0.6-6.3) ng/mL Troponin I (<0.04) ng/mL Total Protein (6.4-8.9) g/dL Albumin (3.2-5.2) g/dL Globulin (2-4) g/dL Albumin/Globulin Ratio (1-3) Beta HCG, Quant mIU/mL Result Diagrams: 07/01/16 17:11 07/01/16 17:11 Lab Statement: Any lab studies that have been ordered have been reviewed, and results considered in the medical decision making process. - Radiology CXR Xray Interpretation: No Acute Changes Radiology Interpretation Completed By: Radiologist - EKG EKG 1500 EKG Rhythm: Sinus Rhythm - 75 EKG Interpretation: no acute ischemic changes Chest Pain Course/Dx - Course Course Of Treatment: Pt's workup neg. SOB improved after albuterol treatment. Given anticipatory guidance to return with worsening symptoms. Will d/c with oral steroid - Diagnoses Provider Diagnoses: Shortness of breath, Asthma exacerbation Discharge - Discharge Plan Condition: Stable Disposition: HOME Prescriptions: predniSONE TAB* [Deltasone TAB*] 50 mg PO DAILY #4 tab Patient Education Materials: Dyspnea (ED) Referrals: Aniceto Bliss MD [Primary Care Provider] - Additional Instructions: Please follow up with Dr. Bliss within the next 2-3 days. Return to the ED if your symptoms worsen. The documentation as recorded by the Tee arias Michael accurately reflects the service I personally performed and the decisions made by Michelle shepherd Afoma Frances, MD.
[2016-07-01 20:00] VITALS: BP 116/64
== END 2016-07-01 20:04 | disposition home or self-care (01) ==
LOC: ED 14:44
DX: R06.02 Shortness of breath (principal); J45.901 Unspecified asthma with (acute) exacerbation; R50.9 Fever, unspecified; R19.7 Diarrhea, unspecified; R07.9 Chest pain, unspecified; R05 Cough
CPT/HCPCS: 36415; 71020; 80053; 82550; 82553; 83605; 84484; 84702; 85025; 85379; 93005; 94640; 96365; 99283; A9270-GY; J2930

== ENCOUNTER 2016-10-19 15:02 | Emergency (ER) | payer OTHER ==
[2016-10-19 15:09] VITALS: BP 123/78
--- NOTE | 2016-10-19 16:17 | UC ---
Jeyson Blanco Alfonso, scribed for Bubba Colorado MD on 10/19/16 at 1516 . General HPI - HPI Summary HPI Summary: This patient is a 36 year old F presenting to [facility] with a chief complaint of a frontal headache since one week ago. The CC is described as a migraine. The patient rates the pain 6/10 currently and 10/10 at its worst in severity. Symptoms alleviated by ibuprofen. Patient reports fever, nausea, loss of appetite, rhinorrhea (clear), ear ache, pain with swallowing, increased thirst, neck pain (chronic and secondary to at a neck surgery), urinary frequency, menses (3 times this month while on BCP), near syncope, fatigue, and weakness. Patient denies chills, CP, abdominal pain, bowel symptoms, and extremity numbness. She takes allergy medication daily. Tobacco abuse disorder. PMHx includes migraine and asthma. Medications reviewed. Allergies reviewed. - History of Current Complaint Chief Complaint: UCGeneralIllness Stated Complaint: HEADACHE Time Seen by Provider: 10/19/16 15:12 Hx Obtained From: Patient Onset/Duration: Sudden Onset, Lasting Weeks - 1, Still Present Timing: Constant Onset Severity: Moderate Current Severity: Moderate Pain Intensity: 6 - 6/10 now. 10/10 worst. Pain Location at: frontal Alleviating: ibuprofen Associated Signs & Symptoms: Positive: Other - fever, nausea, loss of appetite, rhinorrhea (clear), ear ache, pain with swallowing, increased thirst, neck pain (chronic and secondary to at a neck surgery), urinary frequency, menses (3 times this month while on BCP), near syncope, fatigue, and weakness. Patient denies chills, CP, abdominal pain, bowel symptoms, and extremity numbness. - Allergy/Home Medications Allergies/Adverse Reactions: Allergies Allergy/AdvReac Type Severity Reaction Status Date / Time Tramadol Allergy Intermediate Swelling Verified 10/19/16 15:09 Of Face,Lips,& Throat Codeine AdvReac Intermediate vomit Verified 10/19/16 15:09 PMH/Surg Hx/FS Hx/Imm Hx Respiratory History: Asthma Neurological History: Migraine Other History Of: Negative For: HIV, Hepatitis C - Surgical History Surgical History: Yes Surgery Procedure, Year, and Place: Precancerous moles removed from her back. - Family History Known Family History: Positive: Hypertension, Diabetes, Other - CA, kidney stones, blood clots - Social History Alcohol Use: Rare Alcohol Amount: social glasses of wine Substance Use Type: Marijuana Substance Use Comment - Amount & Last Used: to help her sleep Smoking Status (MU): Heavy Every Day Tobacco Smoker Type: Cigarettes Amount Used/How Often: .pack aday for 10 years Length of Time of Smoking/Using Tobacco: 1/2 PPD. 2+ YEARS Have You Smoked in the Last Year: Yes When Did the Patient Quit Smoking/Using Tobacco: 7 YEARS Household Exposure Type: Cigarettes - Immunization History Most Recent Influenza Vaccination: season Most Recent Tetanus Shot: up to date Review of Systems Constitutional: Fever, Other - negative chills ENT: Other - , rhinorrhea (clear), ear ache, pain with swallowing, increased thirst Cardiovascular: Other - negative CP Gastrointestinal: Nausea, Other - loss of appetite; negative abd pain and bowel symptoms. Genitourinary: Other - urinary frequency, menses (3 times this month while on BCP) Musculoskeletal: Other: - neck pain (chronic and secondary to at a neck surgery) Neurological: Headache, Other - near syncope, fatigue, and weakness; negative extremity numbness. All Other Systems Reviewed And Are Negative: Yes Physical Exam Triage Information Reviewed: Yes Appearance: Well-Appearing, No Pain Distress, Obese Vital Signs: Initial Vital Signs Temp 98.3 F 10/19/16 15:06 Pulse 70 10/19/16 15:06 Resp 12 10/19/16 15:06 BP 123/78 10/19/16 15:06 Pulse Ox 99 10/19/16 15:06 Vital Signs Reviewed: Yes Eyes: Positive: Other: - EOMI BRYAN ENT: Positive: Normal ENT inspection Neck: Positive: Supple, Nontender Respiratory: Positive: Lungs clear, Normal breath sounds Cardiovascular: Positive: RRR Abdomen Description: Positive: Nontender, Soft Bowel Sounds: Positive: Present Musculoskeletal: Positive: Strength Intact, ROM Intact Neurological: Positive: Alert, Muscle Tone Normal Psychological: Positive: Age Appropriate Behavior Skin: Positive: Other - warm, color reflects adequate perfusion, dry Re-Evaluation - Re-Evaluation First Eval Re-Evaluation Time: 15:52 Comment: Reviewed limitiations of not having a CAT scan and that labs will take time to come in. Disussed that if symptoms do not improve see PCP and if symptoms become worse go to the ED. She understands and agrees. Course/Dx - Course Course Of Treatment: DISCUSSED GETTING A CT HEAD FOR THE HEADACHE BUT, THERE IS NO CT HERE TODAY. DISCUSSED TO GET A CT, SHE WILL NEED TO GO TO THE EMERGENCY DEPARTMENT. WHEN DISCUSSED, PATIENT BELIEVES A SINUSITIS IS POSSIBLE. WILL RX AUGMENTIN. WE ALSO DISCUSSED HERE SX MAY NOT BE CAUSED BY A SINUSITIS AND SHE WILL NEED TO F/U WITH HER PMD AND, IF HER SX PERSIST OR WORSEN, SEEK EVALUATION AND CARE IN THE EMERGENCY DEPARTMENT. DISCUSSED GETTING BLOOD WORK WITH THE RESULTS BEING AVAILABLE TOMORROW BUT, DECIDED AT THIS TIME NO LABS AND TO TREAT WITH AUGMENTIN AND PLAN PMD F/U/ED IF WORSE. - Differential Dx - Multi-Symptom Provider Diagnoses: HEADACHE, FATIGUE. Discharge - Discharge Plan Condition: Stable Disposition: HOME Prescriptions: Amoxicillin/Clavulanate TAB* [Augmentin TAB 875*] 875 mg PO BID #20 tab Ibuprofen TAB* [Motrin TAB* 600 MG] 600 mg PO Q6H PRN #30 tab PRN Reason: Pain Patient Education Materials: Fatigue (ED), General Headache (ED) Forms: *Work Release Referrals: Aniceto Bliss MD [Primary Care Provider] - 1 Week Additional Instructions: FOLLOW UP WITH YOUR PRIMARY CARE PROVIDER WITHIN THE WEEK FOR HIGH BLOOD PRESSURE NOTED TODAY AT 123/78. FOLLOW UP WITH YOUR DOCTOR. GO TO THE EMERGENCY DEPARTMENT FOR ANY WORSENING OF YOUR CONDITION; PAIN, FEVER , HEADACHES, YOU FEEL ILL, WEAKNESS, NUMBNESS OR QUESTIONS OR CONCERNS. The documentation as recorded by the Jeyson arias Alfonso accurately reflects the service I personally performed and the decisions made by me, Bubba Colorado MD.
== END 2016-10-19 16:05 | disposition home or self-care (01) ==
LOC: UCEAST 15:02
DX: R51 Headache (principal); R53.83 Other fatigue; Z32.02 Encounter for pregnancy test, result negative; F17.210 Nicotine dependence, cigarettes, uncomplicated; Z87.09 Personal history of other diseases of the respiratory system
CPT/HCPCS: 81003; 84702; 87086; 99212; G0463

== ENCOUNTER 2016-12-18 15:34 | Emergency (ER) | payer SELFPAY ==
[2016-12-18 15:51] VITALS: BP 126/62
--- NOTE | 2016-12-18 16:42 | UC ---
Throat Pain/Nasal Tao HPI - HPI Summary HPI Summary: DRY THROAT AND COUGH SINCE YESTERDAY. NO FEVER. NO ABDOMINAL PAIN. - History of Current Complaint Chief Complaint: UCRespiratory Stated Complaint: SORE THROAT Time Seen by Provider: 12/18/16 15:41 Hx Obtained From: Patient, Family/[employer] Work[employer] Hx Last Menstrual Period: 12/01/16 Onset/Duration: Gradual Onset, Lasting Days, Still Present Severity: Mild Pain Intensity: 0 Pain Scale Used: 0-10 Numeric Cough: Nonproductive Associated Signs & Symptoms: Positive: Hoarseness - Epiglottits Risk Factors Epiglottis Risk Factors: Negative - Allergies/Home Medications Allergies/Adverse Reactions: Allergies Allergy/AdvReac Type Severity Reaction Status Date / Time Tramadol Allergy Intermediate Swelling Verified 12/18/16 15:51 Of Face,Lips,& Throat Codeine AdvReac Intermediate vomit Verified 12/18/16 15:51 PMH/Surg Hx/FS Hx/Imm Hx Previously Healthy: Yes Other History Of: Negative For: HIV, Hepatitis C - Surgical History Surgical History: Yes Surgery Procedure, Year, and Place: Precancerous moles removed from her back. - Family History Known Family History: Positive: Hypertension, Diabetes, Other - CA, kidney stones, blood clots - Social History Occupation: Employed Full-time Lives: With Family Alcohol Use: Rare Alcohol Amount: social glasses of wine Substance Use Type: Marijuana Substance Use Comment - Amount & Last Used: to help her sleep Smoking Status (MU): Heavy Every Day Tobacco Smoker Type: Cigarettes Amount Used/How Often: .pack aday for 10 years Length of Time of Smoking/Using Tobacco: 1/2 PPD. 2+ YEARS Have You Smoked in the Last Year: Yes When Did the Patient Quit Smoking/Using Tobacco: 7 YEARS Household Exposure Type: Cigarettes - Immunization History Most Recent Influenza Vaccination: season Most Recent Tetanus Shot: up to date Review of Systems Constitutional: Negative Skin: Negative Eyes: Negative ENT: Sore Throat Respiratory: Cough Cardiovascular: Negative Gastrointestinal: Negative Genitourinary: Negative Motor: Negative Neurovascular: Negative Musculoskeletal: Negative Neurological: Negative Psychological: Negative Is Patient Immunocompromised?: No All Other Systems Reviewed And Are Negative: Yes Physical Exam Triage Information Reviewed: Yes Appearance: Well-Appearing, No Pain Distress, Well-Nourished Vital Signs: Initial Vital Signs Temp 98.2 F 12/18/16 15:47 Pulse 78 12/18/16 15:47 Resp 18 12/18/16 15:47 BP 126/62 12/18/16 15:47 Pulse Ox 100 12/18/16 15:47 Vital Signs Reviewed: Yes Eye Exam: Normal ENT Exam: Normal ENT: Positive: Normal ENT inspection, Pharynx normal Dental Exam: Normal Neck exam: Normal Neck: Positive: Supple, Nontender, No Lymphadenopathy Respiratory Exam: Other - COUGH Respiratory: Positive: Chest non-tender, Lungs clear, Normal breath sounds, No respiratory distress, No accessory muscle use Cardiovascular Exam: Normal Cardiovascular: Positive: RRR, No Murmur, Pulses Normal Abdominal Exam: Normal Musculoskeletal Exam: Normal Musculoskeletal: Positive: Strength Intact, ROM Intact Neurological Exam: Normal Psychological Exam: Normal Skin Exam: Normal Throat Pain/Nasal Course/Dx - Differential Dx/Diagnosis Differential Diagnosis/HQI/PQRI: Pharyngitis, Sinusitis, Tonsillitis, URI Provider Diagnoses: UPPER RESPIRATORY INFECTION Discharge - Discharge Plan Condition: Stable Disposition: HOME Prescriptions: Benzonatate CAP* [Tessalon 100 MG CAP*] 100 mg PO TID PRN #15 cap PRN Reason: Cough Patient Education Materials: Upper Respiratory Infection (ED) Referrals: Aniceto Bliss MD [Primary Care Provider] -
== END 2016-12-18 16:32 | disposition home or self-care (01) ==
LOC: UCCORT 15:34
DX: J06.9 Acute upper respiratory infection, unspecified (principal); Z88.5 Allergy status to narcotic agent; F12.90 Cannabis use, unspecified, uncomplicated; F17.210 Nicotine dependence, cigarettes, uncomplicated
CPT/HCPCS: 99212; G0463

== ENCOUNTER 2017-01-14 19:12 | Emergency (ER) | payer SELFPAY ==
--- NOTE | 2017-01-14 19:40 | UC ---
Ear Complaint HPI - HPI Summary HPI Summary: 36 year old female presents with left ear pain. - History of Current Complaint Stated Complaint: EAR COMPLAINT Time Seen by Provider: 01/14/17 19:39 Hx Obtained From: Patient Hx Last Menstrual Period: 12/01/16 Onset/Duration: Sudden Onset Severity Initially: Moderate Severity Currently: Moderate Pain Scale Used: 0-10 Numeric - 7 - Allergies/Home Medications Allergies/Adverse Reactions: Allergies Allergy/AdvReac Type Severity Reaction Status Date / Time Tramadol Allergy Intermediate Swelling Verified 01/14/17 21:02 Of Face,Lips,& Throat Codeine AdvReac Intermediate vomit Verified 01/14/17 21:02 PMH/Surg Hx/FS Hx/Imm Hx Previously Healthy: Yes Other History Of: Negative For: HIV, Hepatitis C - Surgical History Surgical History: Yes Surgery Procedure, Year, and Place: Precancerous moles removed from her back. - Family History Known Family History: Positive: Hypertension, Diabetes, Other - CA, kidney stones, blood clots - Social History Alcohol Use: Rare Alcohol Amount: social glasses of wine Substance Use Type: Marijuana Substance Use Comment - Amount & Last Used: to help her sleep Smoking Status (MU): Heavy Every Day Tobacco Smoker Type: Cigarettes Amount Used/How Often: .pack aday for 10 years Length of Time of Smoking/Using Tobacco: 1/2 PPD. 2+ YEARS Have You Smoked in the Last Year: Yes When Did the Patient Quit Smoking/Using Tobacco: 7 YEARS Household Exposure Type: Cigarettes - Immunization History Most Recent Influenza Vaccination: 2014/2015 season Most Recent Tetanus Shot: up to date Review of Systems Constitutional: Negative Skin: Negative Eyes: Negative ENT: Ear Ache Respiratory: Negative Cardiovascular: Negative Gastrointestinal: Negative Genitourinary: Negative Motor: Negative Neurovascular: Negative Musculoskeletal: Negative Neurological: Negative Psychological: Negative All Other Systems Reviewed And Are Negative: Yes Physical Exam Triage Information Reviewed: Yes Vital Signs Reviewed: Yes Eye Exam: Normal ENT: Positive: Other - left ear pain Dental Exam: Normal Neck exam: Normal Neck: Positive: 1 Respiratory Exam: Normal Cardiovascular Exam: Normal Abdominal Exam: Normal Musculoskeletal Exam: Normal Neurological Exam: Normal Psychological Exam: Normal Skin Exam: Normal Ear Complaint Course/Dx - Differential Dx/Diagnosis Provider Diagnoses: left otitis externa Discharge - Discharge Plan Condition: Stable Disposition: HOME Prescriptions: Neomyc/Polym/HC 1% OTIC SUSP* [Cortisporin Otic Susp 1%*] 4 drop LEFT EAR TID # 1 btl Patient Education Materials: Otitis Externa (ED) Referrals: Aniceto Bliss MD [Primary Care Provider] -
[2017-01-14 21:15] VITALS: BP 123/70
== END 2017-01-14 21:59 | disposition home or self-care (01) ==
LOC: UCCORT 19:12
DX: H60.92 Unspecified otitis externa, left ear (principal); Z88.5 Allergy status to narcotic agent; F12.90 Cannabis use, unspecified, uncomplicated; F17.210 Nicotine dependence, cigarettes, uncomplicated
CPT/HCPCS: 99212; G0463

== ENCOUNTER 2017-01-29 14:48 | Emergency (ER) | payer OTHER ==
[2017-01-29 15:14] VITALS: BP 121/68
--- NOTE | 2017-01-29 15:52 | UC ---
Respiratory Complaint HPI - HPI Summary HPI Summary: Pt c/o generalized malaise, cough and nasal congestion X 3 days. - History of Current Complaint Chief Complaint: UCRespiratory Stated Complaint: COUGH Time Seen by Provider: 01/29/17 15:45 Hx Obtained From: Patient Hx Last Menstrual Period: 01/26/17 ?: No Onset/Duration: Gradual Onset, Lasting Days, Still Present Timing: Constant Severity Initially: Mild Severity Currently: Mild Character: Cough: Nonproductive Aggravating Factors: Deep Breaths, Recumbent Position Alleviating Factors: Nothing Associated Signs And Symptoms: Positive: URI, Nasal Congestion - Risk Factors Pulmonary Embolism Risk Factors: Smoking Cardiac Risk Factors: Smoking Pseudomonas Risk Factors: Chronic Lung Disease - asthma Tuberculosis Risk Factors: Smoking - Allergies/Home Medications Allergies/Adverse Reactions: Allergies Allergy/AdvReac Type Severity Reaction Status Date / Time Tramadol Allergy Intermediate Swelling Verified 01/29/17 15:14 Of Face,Lips,& Throat Codeine AdvReac Intermediate vomit Verified 01/29/17 15:14 PMH/Surg Hx/FS Hx/Imm Hx Previously Healthy: Yes Other History Of: Negative For: HIV, Hepatitis C - Surgical History Surgical History: Yes Surgery Procedure, Year, and Place: Precancerous moles removed from her back. - Family History Known Family History: Positive: Hypertension, Diabetes, Other - CA, kidney stones, blood clots - Social History Occupation: Employed Full-time Lives: With Family Alcohol Use: Rare Alcohol Amount: social glasses of wine Substance Use Type: Marijuana Substance Use Comment - Amount & Last Used: to help her sleep Smoking Status (MU): Heavy Every Day Tobacco Smoker Type: Cigarettes Amount Used/How Often: .pack aday for 10 years Length of Time of Smoking/Using Tobacco: 1/2 PPD. 2+ YEARS Have You Smoked in the Last Year: Yes When Did the Patient Quit Smoking/Using Tobacco: 7 YEARS Household Exposure Type: Cigarettes - Immunization History Most Recent Influenza Vaccination: 2015/2015 season Most Recent Tetanus Shot: up to date Vaccination Up to Date: No Review of Systems Constitutional: Chills, Fatigue Skin: Negative Eyes: Negative ENT: Negative Respiratory: Cough Cardiovascular: Negative Gastrointestinal: Negative Genitourinary: Negative Motor: Negative Neurovascular: Negative Musculoskeletal: Negative Neurological: Headache Psychological: Negative Is Patient Immunocompromised?: No All Other Systems Reviewed And Are Negative: Yes Physical Exam Triage Information Reviewed: Yes Appearance: Well-Appearing Vital Signs: Initial Vital Signs Temp 98.5 F 01/29/17 15:10 Pulse 76 01/29/17 15:10 Resp 16 01/29/17 15:10 BP 121/68 01/29/17 15:10 Pulse Ox 100 01/29/17 15:10 Vital Signs Reviewed: Yes Eye Exam: Normal ENT Exam: Other ENT: Positive: Nasal congestion Dental Exam: Normal Neck exam: Normal Respiratory Exam: Normal Cardiovascular Exam: Normal Musculoskeletal Exam: Normal Neurological Exam: Normal Psychological Exam: Normal Skin Exam: Normal UC Diagnostic Evaluation - Laboratory O2 Sat by Pulse Oximetry: 100 Respiratory Course/Dx - Differential Dx/Diagnosis Differential Diagnosis/HQI/PQRI: Asthma, Bronchitis, Influenza Provider Diagnoses: Bronchitis Discharge - Discharge Plan Condition: Stable Disposition: HOME Prescriptions: Amoxicillin PO (*) [Amoxicillin 500 MG CAP*] 500 mg PO Q12H #14 cap Benzonatate CAP* [Tessalon 100 MG CAP*] 100 mg PO Q8H PRN #21 cap PRN Reason: Cough Patient Education Materials: Acute Bronchitis (ED) Forms: *Work Release Referrals: Aniceto Bliss MD [Primary Care Provider] - If Needed
== END 2017-01-29 16:15 | disposition home or self-care (01) ==
LOC: UCCORT 14:48
DX: J40 Bronchitis, not specified as acute or chronic (principal); F17.210 Nicotine dependence, cigarettes, uncomplicated
CPT/HCPCS: 99212; G0463

== ENCOUNTER 2017-05-03 15:08 | Emergency (ER) | payer OTHER ==
[2017-05-03 15:30] VITALS: BP 127/70
[2017-05-03] MEDS ORDERED: Al Hydrox/Mg Hydrox/Simet LIQ* 30 ML UDC PO ONE (15:42)
[2017-05-03] MEDS ORDERED: Lidocaine 2% VISCOUS* 15 ML UDC PO ONE (15:43)
--- NOTE | 2017-05-03 15:45 | UC ---
Cardiac HPI - HPI Summary HPI Summary: 37 yo WF no known pmhx c/o epigastric/substernal CP since waking up this AM, worse with movement, recently gotten over a bronchitis. Ate cheesefries for dinner, does not feel like pressure but more like burning, up to mid-esophagus. - History of Current Complaint Chief Complaint: UCChestPain Stated Complaint: CHEST PAIN Time Seen by Provider: 05/03/17 15:30 Hx Obtained From: Patient Hx Last Menstrual Period: 04/21/17 Onset/Duration: Sudden Onset, Lasting Hours Initial Severity: Moderate Pain Intensity: 10 - Allergy/Home Medications Allergies/Adverse Reactions: Allergies Allergy/AdvReac Type Severity Reaction Status Date / Time codeine Allergy Intermediate Vomiting Verified 05/03/17 15:35 tramadol Allergy Intermediate Swelling Verified 05/03/17 15:35 Of Face,Lips,& Throat PMH/Surg Hx/FS Hx/Imm Hx Previously Healthy: Yes Other History Of: Negative For: HIV, Hepatitis C - Surgical History Surgical History: Yes Surgery Procedure, Year, and Place: Precancerous moles removed from her back. Neck surgery 06/13/16 - Family History Known Family History: Positive: Hypertension, Diabetes, Other - CA, kidney stones, blood clots - Social History Alcohol Use: Occasionally Alcohol Amount: social glasses of wine Substance Use Type: Marijuana Substance Use Comment - Amount & Last Used: to help her sleep Smoking Status (MU): Heavy Every Day Tobacco Smoker Type: Cigarettes Amount Used/How Often: 3/4 PPD Length of Time of Smoking/Using Tobacco: 1/2 PPD. 2+ YEARS Have You Smoked in the Last Year: Yes When Did the Patient Quit Smoking/Using Tobacco: 7 YEARS Household Exposure Type: Cigarettes - Immunization History Most Recent Influenza Vaccination: season Most Recent Tetanus Shot: up to date Vaccination Up to Date: No Review of Systems Constitutional: Negative Skin: Negative Eyes: Negative ENT: Negative Cardiovascular: Chest Pain Gastrointestinal: Negative Genitourinary: Negative Motor: Negative Neurovascular: Negative Musculoskeletal: Negative Neurological: Negative Psychological: Negative All Other Systems Reviewed And Are Negative: Yes Physical Exam Triage Information Reviewed: Yes Appearance: Well-Appearing, No Pain Distress Vital Signs: Initial Vital Signs Temp 36.3 C 05/03/17 15:24 Pulse 83 05/03/17 15:24 Resp 16 05/03/17 15:24 BP 127/70 05/03/17 15:24 Pulse Ox 99 05/03/17 15:24 Eye Exam: Normal ENT Exam: Normal Dental Exam: Normal Neck exam: Normal Neck: Positive: 1 Respiratory Exam: Normal Cardiovascular: Positive: RRR, No Murmur Abdominal Exam: Normal Musculoskeletal: Positive: Other: - mild TTP over inferior portion of sternum and epigastrium Neurological Exam: Normal Psychological Exam: Normal Skin Exam: Normal Diagnostics - EKG Cardiac Rate: NL Cardiac Rhythm: Sinus: Normal ST Segment: Normal - Assessment/Plan Course Of Treatment: EKG WNL,Pain NOT improved with Maalox and viscous lidocaine. While waiting in examining room, CP continues sharply ONLY when pt MOVES or in attempt to stretch her chest out- appears to be musculskeletal in nature - Clinical Impression Provider Diagnoses: musculoskeletal pain. chest wall pain Discharge - Discharge Plan Condition: Stable Disposition: HOME Prescriptions: Naproxen Sodium [Naproxen Sodium 500 MG TAB] 500 mg PO BID 10 Days #20 tab Patient Education Materials: Chest Wall Pain (ED) Referrals: Aniceto Bliss MD [Primary Care Provider] -
--- NOTE | 2017-05-03 16:58 | RAD ---
INDICATION: Substernal chest pain COMPARISON: Chest x-ray July 01, 2016 TECHNIQUE: PA and lateral views of the chest were obtained. FINDINGS: The heart and mediastinum are normal in size and contour. The lungs are grossly clear. There is no evidence of large pleural effusion. Visualized bones are normal for the patient's age. There is no radiographic evidence of free air beneath the diaphragm IMPRESSION: No radiographic evidence of acute cardiopulmonary disease.
== END 2017-05-03 17:19 | disposition home or self-care (01) ==
LOC: UCCORT 15:08
DX: R07.89 Other chest pain (principal); Z88.5 Allergy status to narcotic agent; F17.210 Nicotine dependence, cigarettes, uncomplicated
CPT/HCPCS: 71046; 93005; 99212; A9270-GY; G0463

== ENCOUNTER 2017-06-03 15:04 | Emergency (ER) | payer OTHER ==
[2017-06-03 16:24] LABS: ABS Basophils 0.1 10^3/ul (0-0.2); ABS Eosinophils 0.1 10^3/ul (0-0.6); ABS Monocytes 0.4 10^3/ul (0-0.8); ABS Neutrophils 5.5 10^3/ul (1.5-7.7); ABS Nucleated RBC 0 10^3/ul; Eosinophil % 0.9 % (0-6); Hematocrit 43 % (35-47); Hemoglobin 14.7 g/dl (12.0-16.0); Lymphocyte % 24.7 % (25-47); Mean Corpuscular HGB Conc 34 g/dl (31-36); Mean Corpuscular Hemoglobin 29 pg (27-31); Mean Corpuscular Volume 86 fL (80-97); Mean Platelet Volume 7.5 um3 (7.4-10.4); Nucleated Red Blood Cells % 0; Platelet Count 259 10^3/ul (150-450); Red Blood Count 5.02 10^6/ul (4.0-5.4); Red Cell Distribution Width 14 % (10.5-15)
[2017-06-03 16:28] LABS: Urine Appearance Clear; Urine Blood Negative (Negative); Urine Color Straw; Urine Ketones Negative (Negative); Urine Protein Negative (Negative); Urine Specific Gravity 1.003 (1.010-1.030); Urine Urobilinogen Negative (Negative)
[2017-06-03 16:36] LABS: EGFR Non-African American 75.7 (>60)
--- NOTE | 2017-06-03 17:26 | ED ---
Nick Blanco Julia, scribed for Kenny Alexander MD on 06/03/17 at 1653 . Palpitations / Dysrhythmia - HPI Summary HPI Summary: The patient is a 37 year old female complaining of heart palpitations for the two weeks. She complains 30 episodes of palpitations each day that last for a few seconds. She describes an irregular beat. She had a single PVC on the monitor during examination. The patient also complains of cramps, insomnia, and weight loss. She reports her food intake is one bagel per day. She has been dealing with alopecia for the last 10-15 years, which has worsened in the last three months. She is currently being treated for the alopecia with injections. The patient is a current smoker. She denies excessive caffeine intake--she drinks only one cup of caffeinated coffee each day. She denies consuming energy drinks and supplements. She occasionally drinks alcohol. She denies other substance use. - History of Current Complaint Chief Complaint: EDDysrhythmPalp Time Seen by Provider: 06/03/17 16:46 Hx Obtained From: Patient Onset/Duration: Lasting Weeks - 2 Timing: Intermittent Episodes Lasting: - a few seconds Severity Initially: Moderate Severity Currently: None Character: Irregular Aggravating: Nothing Alleviating: Nothing - Allergy/Home Medications Allergies/Adverse Reactions: Allergies Allergy/AdvReac Type Severity Reaction Status Date / Time codeine Allergy Intermediate Vomiting Verified 05/03/17 15:35 tramadol Allergy Intermediate Swelling Verified 05/03/17 15:35 Of Face,Lips,& Throat PMH/Surg Hx/FS Hx/Imm Hx Endocrine/Hematology History: Reports: Hx Anemia - in the past Denies: Hx Diabetes, Hx Thyroid Disease Cardiovascular History: Denies: Hx Hypertension, Hx Pacemaker/ICD Respiratory History: Reports: Hx Asthma, Hx Pneumonia Denies: Hx Chronic Obstructive Pulmonary Disease (COPD), Hx Lung Cancer, Hx Pulmonary Embolism GI History: Reports: Hx Gastroesophageal Reflux Disease, Other GI Disorders - sdifficulty swallowing at times Denies: Hx Gall Bladder Disease, Hx Gastrointestinal Bleed, Hx Ulcer, Hx Urosepsis History: Denies: Hx Kidney Stones, Hx Renal Disease Musculoskeletal History: Reports: Hx Arthritis - right knee and foot Denies: Hx Tendonitis, Other Musculoskeletal History Sensory History: Denies: Hx Contacts or Glasses, Hx Hearing Aid Opthamlomology History: Denies: Hx Contacts or Glasses Neurological History: Reports: Hx Headaches, Hx Migraine Denies: Hx Dementia, Hx Seizures, Hx Transient Ischemic Attacks (TIA) Psychiatric History: Reports: Hx Anxiety, Hx Depression Denies: Hx Panic Disorder, Hx Schizophrenia, Hx Bipolar Disorder - Surgical History Surgery Procedure, Year, and Place: Precancerous moles removed from her back. Neck surgery 06/13/16 Hx Anesthesia Reactions: No Infectious Disease History: No Infectious Disease History: Denies: Hx Clostridium Difficile, Hx Hepatitis, Hx Human Immunodeficiency Virus (HIV), Hx of Known/Suspected MRSA, Hx Shingles, Hx Tuberculosis, Hx Known/ Suspected VRE, Hx Known/Suspected VRSA, History Other Infectious Disease, Traveled Outside the [place] in Last 30 Days - Family History Known Family History: Positive: Hypertension, Diabetes, Other - CA, kidney stones, blood clots - Social History Alcohol Use: Occasionally Alcohol Amount: social glasses of wine Substance Use Type: Reports: Marijuana Substance Use Comment - Amount & Last Used: to help her sleep Smoking Status (MU): Heavy Every Day Tobacco Smoker Type: Cigarettes Amount Used/How Often: 3/4 PPD Length of Time of Smoking/Using Tobacco: 1/2 PPD. 2+ YEARS Have You Smoked in the Last Year: Yes Review of Systems Positive: Other - Weight loss Positive: Palpitations Positive: Other - Cramps Positive: Other - Alopecia Neurological: Other - Insomnia All Other Systems Reviewed And Are Negative: Yes Physical Exam - Summary Physical Exam Summary: Appearance: Well appearing, no pain distress Skin: warm, dry, reflects adequate perfusion Head/face: She has patchy alopecia on her scalp. Otherwise normal. Eyes: EOMI, BRYAN ENT: normal Neck: Supple, non-tender. There are not any thyroid nodules, thyromegaly, or goiter. Respiratory: CTA, breath sounds present Cardiovascular: RRR, pulses symmetrical. She had a single PVC on the monitor during examination. Abdomen: non-tender, soft Bowel Sounds: present Musculoskeletal: normal, strength/ROM intact Neuro: normal, sensory motor intact, A&Ox3 Triage Information Reviewed: Yes Vital Signs On Initial Exam: Initial Vitals Temp Pulse Resp BP Pulse Ox 97.3 F 72 16 140/80 99 06/03/17 15:08 06/03/17 15:08 06/03/17 15:08 06/03/17 15:08 06/03/17 15:08 Vital Signs Reviewed: Yes Diagnostics - Vital Signs Vital Signs Temp Pulse Resp BP Pulse Ox 06/03/17 15:08 97.3 F 72 16 140/80 99 - Laboratory Lab Results: Lab Results 06/03/17 06/03/17 06/03/17 Range/Units 16:05 16:05 16:05 WBC 8.0 (3.5-10.8) 10^3/ul RBC 5.02 (4.0-5.4) 10^6/ul Hgb 14.7 (12.0-16.0) g/dl Hct 43 (35-47) % MCV 86 (80-97) fL MCH 29 (27-31) pg MCHC 34 (31-36) g/dl RDW 14 (10.5-15) % Plt Count 259 (150-450) 10^3/ul MPV 7.5 (7.4-10.4) um3 Neut % (Auto) 68.5 (38-83) % Lymph % (Auto) 24.7 L (25-47) % Rush % (Auto) 5.2 (0-7) % Eos % (Auto) 0.9 (0-6) % Baso % (Auto) 0.7 (0-2) % Absolute Neuts (auto) 5.5 (1.5-7.7) 10^3/ul Absolute Lymphs (auto) 2.0 (1.0-4.8) 10^3/ul Absolute Monos (auto) 0.4 (0-0.8) 10^3/ul Absolute Eos (auto) 0.1 (0-0.6) 10^3/ul Absolute Basos (auto) 0.1 (0-0.2) 10^3/ul Absolute Nucleated RBC 0 10^3/ul Nucleated RBC % 0 Sodium 138 L (139-145) mmol/L Potassium 4.0 (3.5-5.0) mmol/L Chloride 104 (101-111) mmol/L Carbon Dioxide 30 (22-32) mmol/L Anion Gap 4 (2-11) mmol/L BUN 13 (6-24) mg/dL Creatinine 0.85 (0.51-0.95) mg/dL Est GFR ( Amer) 97.3 (>60) Est GFR (Non-Af Amer) 75.7 (>60) BUN/Creatinine Ratio 15.3 (8-20) Glucose 85 (70-100) mg/dL Lactic Acid (0.5-2.0) mmol/L Calcium 9.2 (8.6-10.3) mg/dL Magnesium 2.2 (1.9-2.7) mg/dL Total Bilirubin 0.30 (0.2-1.0) mg/dL AST 12 L (13-39) U/L ALT 10 (7-52) U/L Alkaline Phosphatase 64 (34-104) U/L Troponin I 0.00 (<0.04) ng/mL Total Protein 7.3 (6.4-8.9) g/dL Albumin 4.3 (3.2-5.2) g/dL Globulin 3.0 (2-4) g/dL Albumin/Globulin Ratio 1.4 (1-3) TSH Pending Beta HCG, Quant < 0.60 mIU/mL Urine Color Straw Urine Appearance Clear Urine pH 7.0 (5-9) Ur Specific [place] 1.003 L (1.010-1.030) Urine Protein Negative (Negative) Urine Ketones Negative (Negative) Urine Blood Negative (Negative) Urine Nitrate Negative (Negative) Urine Bilirubin Negative (Negative) Urine Urobilinogen Negative (Negative) Ur Leukocyte Esterase Negative (Negative) Urine Glucose Negative (Negative) 06/03/ Range/Units 16:05 WBC (3.5-10.8) 10^3/ul RBC (4.0-5.4) 10^6/ul Hgb (12.0-16.0) g/dl Hct (35-47) % MCV (80-97) fL MCH (27-31) pg MCHC (31-36) g/dl RDW (10.5-15) % Plt Count (150-450) 10^3/ul MPV (7.4-10.4) um3 Neut % (Auto) (38-83) % Lymph % (Auto) (25-47) % Rush % (Auto) (0-7) % Eos % (Auto) (0-6) % Baso % (Auto) (0-2) % Absolute Neuts (auto) (1.5-7.7) 10^3/ul Absolute Lymphs (auto) (1.0-4.8) 10^3/ul Absolute Monos (auto) (0-0.8) 10^3/ul Absolute Eos (auto) (0-0.6) 10^3/ul Absolute Basos (auto) (0-0.2) 10^3/ul Absolute Nucleated RBC 10^3/ul Nucleated RBC % Sodium (139-145) mmol/L Potassium (3.5-5.0) mmol/L Chloride (101-111) mmol/L Carbon Dioxide (22-32) mmol/L Anion Gap (2-11) mmol/L BUN (6-24) mg/dL Creatinine (0.51-0.95) mg/dL Est GFR ( Amer) (>60) Est GFR (Non-Af Amer) (>60) BUN/Creatinine Ratio (8-20) Glucose (70-100) mg/dL Lactic Acid 0.5 (0.5-2.0) mmol/L Calcium (8.6-10.3) mg/dL Magnesium (1.9-2.7) mg/dL Total Bilirubin (0.2-1.0) mg/dL AST (13-39) U/L ALT (7-52) U/L Alkaline Phosphatase (34-104) U/L Troponin I (<0.04) ng/mL Total Protein (6.4-8.9) g/dL Albumin (3.2-5.2) g/dL Globulin (2-4) g/dL Albumin/Globulin Ratio (1-3) TSH Beta HCG, Quant mIU/mL Urine Color Urine Appearance Urine pH (5-9) Ur Specific [place] (1.010-1.030) Urine Protein (Negative) Urine Ketones (Negative) Urine Blood (Negative) Urine Nitrate (Negative) Urine Bilirubin (Negative) Urine Urobilinogen (Negative) Ur Leukocyte Esterase (Negative) Urine Glucose (Negative) Result Diagrams: 06/03/17 16:05 06/03/17 16:05 Lab Statement: Any lab studies that have been ordered have been reviewed, and results considered in the medical decision making process. - EKG 15:07 Cardiac Rate: NL EKG Rhythm: Sinus Rhythm - at 65 BPM EKG Interpretation: Normal axis, normal intervals, normal ST. Course/Dx - Course Course Of Treatment: Pt with occassional PVC that she is feeling. No runs witnessed. Not eating appropriately and has a lot of stress. Home care discussed. Will have f/u with PMD. Labs including trop are benign. EKG normal. - Diagnoses Differential Diagnosis/HQI/PQRI: Positive: AV Block, Cardiomyopathy, Hypokalemia , Hyperventilation, Medication Induced, Panic Disorder, V-Tach Provider Diagnoses: PVCs (premature ventricular contractions) Discharge - Sign-Out/Discharge Documenting (check all that apply): Discharge - Discharge Plan Condition: Stable Disposition: HOME Patient Education Materials: Premature Ventricular Contractions (ED) Referrals: Aniceto Bliss MD [Primary Care Provider] - Additional Instructions: Get plenty of sleep. Eat a more regular diet. Relaxation techniques. Take a multivitamin today. - Billing Disposition and Condition Condition: STABLE Disposition: HOME The documentation as recorded by the Nick arias Julia accurately reflects the service I personally performed and the decisions made by me, Kenny Alexander MD.
[2017-06-03 17:27] VITALS: BP 00/00
== END 2017-06-03 17:26 | disposition home or self-care (01) ==
LOC: ED 15:04
DX: I49.3 Ventricular premature depolarization (principal); R00.2 Palpitations; F17.210 Nicotine dependence, cigarettes, uncomplicated
CPT/HCPCS: 36415; 80053; 81003; 83605; 83735; 84443; 84484; 84702; 85025; 93005; 99281

== ENCOUNTER 2017-10-15 19:59 | Emergency (ER) | payer OTHER ==
[2017-10-15 23:59] VITALS: BP 125/68
--- NOTE | 2017-10-16 02:19 | ED ---
Respiratory - HPI Summary HPI Summary: Pt. is a 37 y.o female who presents to the ER for an ongoing cough x several weeks. Pt. states that she has a history of asthma and allergies. She also is a daily smoker. Pt. states that she saw her PCP and was placed on prednisone without any improvement. Pt. states over the last few days her cough has become more productive. She denies fever/chills. Pt. states she has been taking albuterol inhaler with minimal improvement. Symptoms are mild in severity. No current modifying factors. - History of Current Complaint Chief Complaint: EDAsthma Stated Complaint: CHEST PAIN/COUGH Time Seen by Provider: 10/15/17 23:06 Hx Obtained From: Patient Pain Intensity: 5 - Allergy/Home Medications Allergies/Adverse Reactions: Allergies Allergy/AdvReac Type Severity Reaction Status Date / Time codeine Allergy Intermediate Vomiting Verified 10/15/17 20:03 tramadol Allergy Intermediate Swelling Verified 10/15/17 20:03 Of Face,Lips,& Throat PMH/Surg Hx/FS Hx/Imm Hx Previously Healthy: Yes Endocrine/Hematology History: Reports: Hx Anemia - in the past Denies: Hx Diabetes, Hx Thyroid Disease Cardiovascular History: Denies: Hx Hypertension, Hx Pacemaker/ICD Respiratory History: Reports: Hx Asthma, Hx Pneumonia Denies: Hx Chronic Obstructive Pulmonary Disease (COPD), Hx Lung Cancer, Hx Pulmonary Embolism GI History: Reports: Hx Gastroesophageal Reflux Disease, Other GI Disorders - sdifficulty swallowing at times Denies: Hx Gall Bladder Disease, Hx Gastrointestinal Bleed, Hx Ulcer, Hx Urosepsis History: Denies: Hx Kidney Stones, Hx Renal Disease Musculoskeletal History: Reports: Hx Arthritis - right knee and foot Denies: Hx Tendonitis, Other Musculoskeletal History Sensory History: Denies: Hx Contacts or Glasses, Hx Hearing Aid Opthamlomology History: Denies: Hx Contacts or Glasses Neurological History: Reports: Hx Headaches, Hx Migraine Denies: Hx Dementia, Hx Seizures, Hx Transient Ischemic Attacks (TIA) Psychiatric History: Reports: Hx Anxiety, Hx Depression Denies: Hx Panic Disorder, Hx Schizophrenia, Hx Bipolar Disorder - Surgical History Surgery Procedure, Year, and Place: Precancerous moles removed from her back. Neck surgery 06/13/16 Hx Anesthesia Reactions: No Infectious Disease History: No Infectious Disease History: Denies: Hx Clostridium Difficile, Hx Hepatitis, Hx Human Immunodeficiency Virus (HIV), Hx of Known/Suspected MRSA, Hx Shingles, Hx Tuberculosis, Hx Known/ Suspected VRE, Hx Known/Suspected VRSA, History Other Infectious Disease, Traveled Outside the [place] in Last 30 Days - Family History Known Family History: Positive: Hypertension, Diabetes, Other - CA, kidney stones, blood clots - Social History Occupation: Employed Full-time Lives: With Family Alcohol Use: Occasionally Alcohol Amount: social glasses of wine Substance Use Type: Reports: Marijuana Substance Use Comment - Amount & Last Used: to help her sleep Smoking Status (MU): Heavy Every Day Tobacco Smoker Type: Cigarettes Amount Used/How Often: 3/4 PPD Length of Time of Smoking/Using Tobacco: 1/2 PPD. 2+ YEARS Have You Smoked in the Last Year: Yes Review of Systems Constitutional: Negative Negative: Fever, Chills Eyes: Negative ENT: Negative Cardiovascular: Negative Negative: Palpitations, Chest Pain Positive: Shortness Of Breath, Cough Neurological: Negative All Other Systems Reviewed And Are Negative: Yes Physical Exam Triage Information Reviewed: Yes Vital Signs On Initial Exam: Initial Vitals Temp Pulse Resp BP Pulse Ox 98.1 F 78 16 117/81 97 10/15/17 20:03 10/15/17 20:03 10/15/17 20:03 10/15/17 20:03 10/15/17 20:03 Vital Signs Reviewed: Yes Appearance: Positive: Well-Appearing - Patient sitting up in bed in no acute distress. Breathing easily on room air. Skin: Positive: Warm, Dry Head/Face: Positive: Normal Head/Face Inspection Eyes: Positive: Normal, EOMI Neck: Positive: Supple Respiratory/Lung Sounds: Positive: Clear to Auscultation, Breath Sounds Present. Negative: Rhonchi, Wheezes Cardiovascular: Positive: Normal, RRR Neurological: Positive: Normal, CN Intact II-III Psychiatric: Positive: Affect/Mood Appropriate Diagnostics - Vital Signs Vital Signs Temp Pulse Resp BP Pulse Ox 10/15/17 23:57 98.4 F 80 20 125/68 100 10/15/17 22:13 97.8 F 68 16 117/80 99 10/15/17 20:03 98.1 F 78 16 117/81 97 - Laboratory Lab Statement: Any lab studies that have been ordered have been reviewed, and results considered in the medical decision making process. Disposition - Course Course Of Treatment: Patient presenting with ongoing productive cough. She is afebrile with stable vital signs. Oxygen saturation is 97% room air which is normal. CXR is negaive for infiltrate or acute change, reading per myself and Dr. Alexander. Results discussed. Advised pt. to call PCP tomorrow for a close f.u apt. To continue home medications as directed. Avoid smoking. To return to ER if sxs change or worsen. - Differential Dx - Cardiopulmonary Differential Diagnoses - Cardiopulmonary: Bronchitis, Influenza, Lower Resp Infection - Diagnoses Provider Diagnoses: Bronchitis Discharge - Sign-Out/Discharge Documenting (check all that apply): Patient Departure - Discharge Plan Condition: Good Disposition: HOME Patient Education Materials: Asthma (ED), Chronic Bronchitis (ED) Referrals: Aniceto Bliss MD [Primary Care Provider] - Additional Instructions: Call PCP tomorrow for an appointment Take prescribed medications as directed Tylenol or Motrin for pain as directed Return to ER if symptoms change or worsen - Billing Disposition and Condition Condition: GOOD Disposition: Home
--- NOTE | 2017-10-16 07:35 | RAD ---
INDICATION: Cough COMPARISON: July 01, 2016 TECHNIQUE: PA and lateral dual-energy views were obtained. FINDINGS: Bones/Soft Tissues: There are no acute bony findings. Cardiomediastinal: The cardiomediastinal silhouette is normal. Lungs: There are no infiltrates. Pleura: There are no pleural effusions. Other: None IMPRESSION: NORMAL CHEST. R1
== END 2017-10-15 23:57 | disposition home or self-care (01) ==
LOC: ED 19:59
DX: J40 Bronchitis, not specified as acute or chronic (principal); F17.210 Nicotine dependence, cigarettes, uncomplicated; Z88.5 Allergy status to narcotic agent
CPT/HCPCS: 71046; 99282

== ENCOUNTER 2019-02-19 16:54 | Emergency (ER) | payer SELFPAY ==
[2019-02-19 17:08] VITALS: BP 121/76
--- NOTE | 2019-02-19 17:12 | UC ---
Shoulder Pain HPI - HPI Summary HPI Summary: Patient is a 39yo female presenting with R shoulder pain x1 month that has gradually worsened and now radiates to R side chest and sternum. Patient describes pain as feeling "like lightning" when she touches her skin or moves her right arm. Patient also notes numbness and tingling down her right arm into her fingers. States it feels better when bracing R arm and not touching her skin. Patient states she had surgery on neck less than 2 years ago for "crushed disc." Denies any recent injury or trauma. Has been taking ibuprofen "which helps with pain for maybe 45 min." Denies SOB and difficulty breathing. Denies n /v and diaphoresis. Patient states she "thinks her pain is nerve pain, not from her heart." Notes history of alopecia and asthma, denies other adult illnesses. Denies other daily medications. Smoker 1/2ppd - History of Current Complaint Chief Complaint: UCUpperExtremity Stated Complaint: RIGHT SHOULDER/CHEST PAIN Hx Obtained From: Patient Hx Last Menstrual Period: 02/15/19 Pain Intensity: 6 - Allergies/Home Medications Allergies/Adverse Reactions: Allergies Allergy/AdvReac Type Severity Reaction Status Date / Time codeine Allergy Intermediate Vomiting Verified 02/19/19 17:09 tramadol Allergy Intermediate Swelling Verified 02/19/19 17:09 Of Face,Lips,& Throat PMH/Surg Hx/FS Hx/Imm Hx Other History Of: Negative For: HIV, Hepatitis C - Surgical History Surgical History: Yes Surgery Procedure, Year, and Place: Precancerous moles removed from her back. Neck surgery 06/13/16 - Family History Known Family History: Positive: Hypertension, Diabetes, Other - CA, kidney stones, blood clots - Social History Alcohol Use: Occasionally Alcohol Amount: social glasses of wine Substance Use Type: Marijuana Substance Use Comment - Amount & Last Used: to help her sleep Smoking Status (MU): Heavy Every Day Tobacco Smoker Type: Cigarettes Amount Used/How Often: 3/4 PPD Length of Time of Smoking/Using Tobacco: 1/2 PPD. 2+ YEARS Have You Smoked in the Last Year: Yes When Did the Patient Quit Smoking/Using Tobacco: 7 YEARS Household Exposure Type: Cigarettes - Immunization History Most Recent Influenza Vaccination: season Most Recent Tetanus Shot: up to date Vaccination Up to Date: No Review of Systems All Other Systems Reviewed And Are Negative: Yes Constitutional: Positive: Negative. Negative: Fever, Chills, Fatigue ENT: Positive: Negative Respiratory: Positive: Negative. Negative: Shortness Of Breath Cardiovascular: Positive: Negative. Negative: Palpitations, Chest Pain Gastrointestinal: Positive: Negative. Negative: Vomiting, Nausea Musculoskeletal: Positive: Arthralgia - R shoulder/R chest pain. Negative: Decreased ROM, Edema Neurological: Positive: Paresthesia - down R arm into fingers, Numbness - R fingers Physical Exam Triage Information Reviewed: Yes Appearance: Well-Appearing, No Pain Distress, Well-Nourished Vital Signs: Initial Vital Signs Temp 99.5 F 02/19/19 16:59 Pulse 76 02/19/19 16:59 Resp 16 02/19/19 16:59 BP 121/76 02/19/19 16:59 Pulse Ox 99 02/19/19 16:59 Vital Signs Reviewed: Yes Eyes: Positive: Conjunctiva Clear ENT: Positive: Hearing grossly normal Neck exam: Normal Neck: Positive: Supple, Nontender, No Lymphadenopathy Respiratory Exam: Normal Respiratory: Positive: Lungs clear, Normal breath sounds, No respiratory distress, No accessory muscle use. Negative: Crackles, Rhonchi, Stridor, Wheezing Cardiovascular Exam: Normal Cardiovascular: Positive: RRR, No Murmur, Pulses Normal - strong radial pulses b /l, Brisk Capillary Refill - <2sec Musculoskeletal: Positive: Strength Intact, ROM Intact, No Edema, Other: - pain with palpation of R pectoralis, R trapezius, R deltoid, R biceps Neurological Exam: Other - sensation grossly intact Neurological: Positive: Alert Psychological: Positive: Normal Response To Family Skin Exam: Normal - no erythema or ecchymosis Diagnostics - Radiology cervical Radiology Interpretation Completed By: Radiologist Summary of Radiographic Findings: FINDINGS: C1-C7 are visualized. There is straightening of the cervical spine with loss of the normal cervical lordosis. No prevertebral soft tissue swelling or fracture is seen. There is moderate degenerative disc disease at the C4-C5 and C6-C7 levels. IMPRESSION: 1. STRAIGHTENING OF THE CERVICAL SPINE. 2. MODERATE DEGENERATIVE DISC DISEASE. - EKG Cardiac Rate: NL Cardiac Rhythm: Sinus: Normal Ectopy: None ST Segment: Normal - 71 Shoulder Course/Dx - Course Course Of Treatment: Patient with normal EKG. Cervical radiographs reveal straightening and DJD. Discussed cervical radiculopathy with patient and instructed to follow up with orthopedics. Patient received flexeril and a sling to help alleviate pain symptoms. Patient voiced understanding and agreed with treatment plan. - Differential Dx/Diagnosis Differential Diagnosis/HQI/PQRI: Rotator Cuff Injury, Sprain, Strain, Other - cervical radiculopathy Provider Diagnosis: Cervical pain Discharge ED - Sign-Out/Discharge Documenting (check all that apply): Patient Departure All imaging exams completed and their final reports reviewed: Yes - Discharge Plan Condition: Stable Disposition: HOME Prescriptions: Cyclobenzaprine TAB* [Flexeril 10 MG TAB*] 10 mg PO BEDTIME #6 tab Patient Education Materials: Cervical Radiculopathy (ED), Degenerative Disc Disease (ED) Forms: *Work Release Referrals: [facility] [Outside] - 1 Week Aniceto Bliss MD [Primary Care Provider] - If Needed Additional Instructions: As discussed, your EKG was normal today. Your xrays showed degenerative disc disease. You received a dose of Flexeril tonight and also a prescription sent to the pharmacy. You may continue to take ibuprofen and/or Tylenol for pain relief. You may also apply heat to the area and use the sling to help relieve pain. Follow-up with orthopedic referral listed below for further evaluation and treatment. - Billing Disposition and Condition Condition: STABLE Disposition: Home
[2019-02-19] MEDS ORDERED: Cyclobenzaprine TAB* 10 MG PO ONE (18:36)
--- NOTE | 2019-02-20 09:41 | UC ---
Course/Dx - Diagnoses Provider Diagnoses: Cervical pain Discharge ED - Sign-Out/Discharge Documenting (check all that apply): Post-Discharge Follow Up All imaging exams completed and their final reports reviewed: Yes - Discharge Plan Condition: Stable Disposition: HOME Prescriptions: Cyclobenzaprine TAB* [Flexeril 10 MG TAB*] 10 mg PO BEDTIME #6 tab Patient Education Materials: Cervical Radiculopathy (ED), Degenerative Disc Disease (ED) Forms: *Work Release Referrals: [facility] – [facility] [Outside] - 1 Week Aniceto Bliss MD [Primary Care Provider] - If Needed Additional Instructions: As discussed, your EKG was normal today. Your xrays showed degenerative disc disease. You received a dose of Flexeril tonight and also a prescription sent to the pharmacy. You may continue to take ibuprofen and/or Tylenol for pain relief. You may also apply heat to the area and use the sling to help relieve pain. Follow-up with orthopedic referral listed below for further evaluation and treatment. - Billing Disposition and Condition Condition: STABLE Disposition: Home
== END 2019-02-19 18:55 | disposition home or self-care (01) ==
LOC: UCCORT 16:54
DX: M54.2 Cervicalgia (principal); M50.321 Other cervical disc degeneration at C4-C5 level; M53.82 Other specified dorsopathies, cervical region; F17.210 Nicotine dependence, cigarettes, uncomplicated; Z88.5 Allergy status to narcotic agent
CPT/HCPCS: 72050; 93005; 99213; A9270-GY; G0463

== ENCOUNTER 2019-03-24 14:40 | Emergency (ER) | payer SELFPAY ==
--- NOTE | 2019-03-24 16:58 | ED ---
Neck Pain - HPI Summary HPI Summary: 39-year-old female presents with neck pain for the past couple months. She said the pain has been gradually getting worse. States is greatest in the center of her neck. States it is radiates to the right arm and chest. She states she has sharp pain down her arm. She does have some weakness in the right arm. No fevers. no loss of bowel or bladder. no saddle anasthesia. States she has no thoracic or lumbar back pain at this time. she has not taken any medication as ibuprofen has not been working. She's had a C6-7 laminectomy 2 years ago. She states that pain is in a similar location. States she doesn' t currently have insurance at this time but is wondering if she can get an MRI. She states her pain has been waking her up out of her sleep. She has no medical conditions. - History of Current Complaint Chief Complaint: EDNeckComplaint Stated Complaint: NERVE PAIN PER PT Time Seen by Provider: 03/24/19 16:33 Hx Last Menstrual Period: 02/15/19 Pain Intensity: 10 - Allergies/Home Medications Allergies/Adverse Reactions: Allergies Allergy/AdvReac Type Severity Reaction Status Date / Time codeine Allergy Intermediate Vomiting Verified 03/24/19 14:52 tramadol Allergy Intermediate Swelling Verified 03/24/19 14:52 Of Face,Lips,& Throat PMH/Surg Hx/FS Hx/Imm Hx Endocrine/Hematology History: Reports: Hx Anemia - in the past Denies: Hx Diabetes, Hx Thyroid Disease Cardiovascular History: Denies: Hx Hypertension, Hx Pacemaker/ICD Respiratory History: Reports: Hx Asthma, Hx Pneumonia Denies: Hx Chronic Obstructive Pulmonary Disease (COPD), Hx Lung Cancer, Hx Pulmonary Embolism GI History: Reports: Hx Gastroesophageal Reflux Disease, Other GI Disorders - sdifficulty swallowing at times Denies: Hx Gall Bladder Disease, Hx Gastrointestinal Bleed, Hx Ulcer, Hx Urosepsis History: Denies: Hx Kidney Stones, Hx Renal Disease Musculoskeletal History: Reports: Hx Arthritis - right knee and foot Denies: Hx Tendonitis, Other Musculoskeletal History Sensory History: Denies: Hx Contacts or Glasses, Hx Hearing Aid Opthamlomology History: Denies: Hx Contacts or Glasses Neurological History: Reports: Hx Headaches, Hx Migraine Denies: Hx Dementia, Hx Seizures, Hx Transient Ischemic Attacks (TIA) Psychiatric History: Reports: Hx Anxiety, Hx Depression Denies: Hx Panic Disorder, Hx Schizophrenia, Hx Bipolar Disorder - Surgical History Surgery Procedure, Year, and Place: Precancerous moles removed from her back. Neck surgery 06/13/16 Hx Anesthesia Reactions: No Infectious Disease History: No Infectious Disease History: Denies: Hx Clostridium Difficile, Hx Hepatitis, Hx Human Immunodeficiency Virus (HIV), Hx of Known/Suspected MRSA, Hx Shingles, Hx Tuberculosis, Hx Known/ Suspected VRE, Hx Known/Suspected VRSA, History Other Infectious Disease, Traveled Outside the [place] in Last 30 Days - Family History Known Family History: Positive: Hypertension, Diabetes, Other - CA, kidney stones, blood clots - Social History Alcohol Use: Rare Alcohol Amount: social glasses of wine Substance Use Type: Reports: Marijuana Substance Use Comment - Amount & Last Used: to help her sleep Smoking Status (MU): Heavy Every Day Tobacco Smoker Type: Cigarettes Amount Used/How Often: 3/4 PPD Length of Time of Smoking/Using Tobacco: 1/2 PPD. 2+ YEARS Have You Smoked in the Last Year: Yes Review of Systems Negative: Fever Negative: Chest Pain Negative: Shortness Of Breath Positive: Myalgia - neck pain All Other Systems Reviewed And Are Negative: Yes Physical Exam Triage Information Reviewed: Yes Vital Signs On Initial Exam: Initial Vitals Temp Pulse Resp BP Pulse Ox 98.5 F 87 19 131/103 96 03/24/19 14:48 03/24/19 14:48 03/24/19 14:48 03/24/19 14:48 03/24/19 14:48 Vital Signs Reviewed: Yes Appearance: Positive: Well-Appearing Skin: Positive: Warm, Dry Head/Face: Positive: Normal Head/Face Inspection Eyes: Positive: Normal, Conjunctiva Clear ENT: Positive: Pharynx normal Respiratory/Lung Sounds: Positive: Clear to Auscultation, Breath Sounds Present Cardiovascular: Positive: Normal, RRR Musculoskeletal: Positive: Limited @ - neck, Other - tenderness neck, good strength upper extremities, Neurological: Positive: Normal, Reflexes Intact - biceps Psychiatric: Positive: Normal Procedures - Sedation Patient Received Moderate/Deep Sedation with Procedure: No Diagnostics - Vital Signs Vital Signs Temp Pulse Resp BP Pulse Ox 03/24/19 14:48 98.5 F 87 19 131/103 96 - Laboratory Lab Statement: Any lab studies that have been ordered have been reviewed, and results considered in the medical decision making process. Neck Course/Dx - Course Course Of Treatment: 39-year-old female presents with neck pain for the past couple months. She said the pain has been gradually getting worse. States is greatest in the center of her neck. States it is radiates to the right arm and chest. She states she has sharp pain down her arm. She does have some weakness in the right arm. No fevers. no loss of bowel or bladder. no saddle anasthesia. States she has no thoracic or lumbar back pain at this time. she has not taken any medication as ibuprofen has not been working. She's had a C6- 7 laminectomy 2 years ago. She states that pain is in a similar location. States she doesn't currently have insurance at this time but is wondering if she can get an MRI. She states her pain has been waking her up out of her sleep. She has no medical conditions. On exam tenderness of neck. good strength in upper arms. Biceps reflexes intact. No neuro deficits noted. Will give a short course of muscle relaxers and steroid. Told needs to establish care with a primary to follow up for an MRI. Patient understands and agrees with the plan. - Diagnoses Differential Dx/HQI/PQRI: Positive: Cervical Fracture, Sprain, Strain Provider Diagnoses: Neck pain Discharge ED - Sign-Out/Discharge Documenting (check all that apply): Patient Departure - Discharge Plan Condition: Good Disposition: HOME Prescriptions: Methocarbamol TAB* [Robaxin 500 MG TAB*] 500 mg PO TID PRN #21 tab PRN Reason: Pain - Moderate methylPREDNISolone [Medrol Dosepak 4 MG*] 4 mg PO .SEE MAURO INSTRUCTION #1 packet Patient Education Materials: Neck Pain (ED) Referrals: Aniceto Bliss MD [Primary Care Provider] - Additional Instructions: Follow directions on package for Medrol pack Take muscle relaxers three times a day Use ibuprofen or Tylenol for pain every 6 hours ice/heat area, move as much as possible Follow up with primary within 5 days Return to ED if develop any new or worsening symptoms - Billing Disposition and Condition Condition: GOOD Disposition: Home
[2019-03-24] MEDS ORDERED: HYDROcodone/ACETAMIN 5-325 MG* 1 TAB PO ONE (17:00)
[2019-03-24] MEDS ORDERED: Ketorolac INJ* 30 MG/ML 1 ML VIAL IM ONE (17:00)
[2019-03-24 17:47] VITALS: BP 111/94
== END 2019-03-24 17:45 | disposition home or self-care (01) ==
LOC: ED 14:40
DX: M54.2 Cervicalgia (principal); D64.9 Anemia, unspecified; J45.909 Unspecified asthma, uncomplicated; K21.9 Gastro-esophageal reflux disease without esophagitis; F41.9 Anxiety disorder, unspecified; F32.9 Major depressive disorder, single episode, unspecified; F17.210 Nicotine dependence, cigarettes, uncomplicated; Z88.5 Allergy status to narcotic agent
CPT/HCPCS: 96372; 99282; J1885

== ENCOUNTER 2019-05-05 12:39 | Emergency (ER) | payer SELFPAY ==
--- NOTE | 2019-05-05 13:00 | ED ---
Medical Screening - HPI Summary HPI Summary: 39 year old F with chronic shortness of breath and chronic cough secondary to hx asthma and hx allergies requesting to be screened for COVID19. Patient has no symptoms but is requesting to be tested because she has a in the house. Medications reviewed. Allergies noted. - History of Current Complaint Chief Complaint: EDGeneral Stated Complaint: WANTS TO BE TESTED NO SYMPTOMS Time Seen by Provider: 05/05/19 12:50 PMH/Surg Hx/FS Hx/Imm Hx Endocrine/Hematology History: Reports: Hx Anemia - in the past Denies: Hx Diabetes, Hx Thyroid Disease Cardiovascular History: Denies: Hx Hypertension, Hx Pacemaker/ICD Respiratory History: Reports: Hx Asthma, Hx Pneumonia Denies: Hx Chronic Obstructive Pulmonary Disease (COPD), Hx Lung Cancer, Hx Pulmonary Embolism GI History: Reports: Hx Gastroesophageal Reflux Disease, Other GI Disorders - sdifficulty swallowing at times Denies: Hx Gall Bladder Disease, Hx Gastrointestinal Bleed, Hx Ulcer, Hx Urosepsis History: Denies: Hx Kidney Stones, Hx Renal Disease Musculoskeletal History: Reports: Hx Arthritis - right knee and foot Denies: Hx Tendonitis, Other Musculoskeletal History Sensory History: Denies: Hx Contacts or Glasses, Hx Hearing Aid Opthamlomology History: Denies: Hx Contacts or Glasses Neurological History: Reports: Hx Headaches, Hx Migraine Denies: Hx Dementia, Hx Seizures, Hx Transient Ischemic Attacks (TIA) Psychiatric History: Reports: Hx Anxiety, Hx Depression Denies: Hx Panic Disorder, Hx Schizophrenia, Hx Bipolar Disorder - Surgical History Surgery Procedure, Year, and Place: Precancerous moles removed from her back. Neck surgery 06/13/16 Hx Anesthesia Reactions: No Infectious Disease History: No Infectious Disease History: Denies: Hx Clostridium Difficile, Hx Hepatitis, Hx Human Immunodeficiency Virus (HIV), Hx of Known/Suspected MRSA, Hx Shingles, Hx Tuberculosis, Hx Known/ Suspected VRE, Hx Known/Suspected VRSA, History Other Infectious Disease, Traveled Outside the [place] in Last 30 Days - Family History Known Family History: Positive: Hypertension, Diabetes, Other - CA, kidney stones, blood clots - Social History Alcohol Use: Rare Alcohol Amount: social glasses of wine Hx Substance Use: Yes Substance Use Type: Reports: Marijuana Substance Use Comment - Amount & Last Used: to help her sleep Hx Tobacco Use: Yes Smoking Status (MU): Heavy Every Day Tobacco Smoker Type: Cigarettes Amount Used/How Often: 3/4 PPD Length of Time of Smoking/Using Tobacco: 1/2 PPD. 2+ YEARS Have You Smoked in the Last Year: Yes Review of Systems Negative: Fever Negative: Shortness Of Breath, Cough All Other Systems Reviewed And Are Negative: Yes Physical Exam - Summary Physical Exam Summary: General: Well appearing, no distress HEENT: PERRL Cardiovascular: Skin is well perfused Pulmonary: No respiratory distress, no tachypnea, lungs are clear Abdomen: Non-distended Skin: Warm, pink, dry MSK: No edema Psych: Normal affect Neuro: A&Ox3 Triage Information Reviewed: Yes Vital Signs On Initial Exam: Initial Vitals Temp Pulse Resp BP Pulse Ox 99.9 F 85 16 111/77 99 05/05/19 12:46 05/05/19 12:46 05/05/19 12:46 05/05/19 12:46 05/05/19 12:46 Vital Signs Reviewed: Yes Procedures - Sedation Patient Received Moderate/Deep Sedation with Procedure: No Diagnostics - Vital Signs Vital Signs Temp Pulse Resp BP Pulse Ox 05/05/19 12:46 99.9 F 85 16 111/77 99 - Laboratory Lab Statement: Any lab studies that have been ordered have been reviewed, and results considered in the medical decision making process. Course/Dx - Course Course Of Treatment: 39 y/o F w asthma presenting for COVID 19 testing. - D/w patient indidications for testing, does not qualify as she is asymptomatic. Medical screening exam was performed, patient does not have any emergent conditions requiring further workup. - Diagnoses Provider Diagnoses: Asthma Discharge ED - Sign-Out/Discharge Documenting (check all that apply): Patient Departure - Discharge Plan Condition: Stable Disposition: HOME Patient Education Materials: Asthma (ED) Referrals: Aniceto Bliss MD [Primary Care Provider] - Additional Instructions: You were seen in the emergency department for cough. You did not meet criteria for testing, however we still recommend that you self quarantine if you have any symptoms. This means you should stay in your house. We encourage handwashing as well as limited contact with other people including the elderly and the immunocompromised. If any studies were not completed at the time of discharge you will be called with the relevant results. Please follow up with your primary care doctor in next 2-3 days and return to emergency department for trouble breathing, worsening or concerning symptoms. It was a pleasure taking care of you today - Billing Disposition and Condition Condition: STABLE Disposition: Home - Attestation Statements Document Initiated by Tr: Yes Documenting Scribe: Elizabeth Quintanilla Provider For Whom Tr is Documenting (Include Credential): Sanjana Hays MD Scribe Attestation: I, Elizabeth Quintanilla, scribed for Sanjana Hays MD on 05/05/19 at 1308. Scribe Documentation Reviewed: Yes Provider Attestation: The documentation as recorded by the Elizabeth arias accurately reflects the service I personally performed and the decisions made by me, Sanjana Hays MD Status of Scribe Document: Viewed
[2019-05-05 13:46] VITALS: BP 120/85
== END 2019-05-05 13:40 | disposition home or self-care (01) ==
LOC: ED 12:39
DX: J45.909 Unspecified asthma, uncomplicated (principal); D64.9 Anemia, unspecified; K21.9 Gastro-esophageal reflux disease without esophagitis; F41.9 Anxiety disorder, unspecified; F32.9 Major depressive disorder, single episode, unspecified; F17.210 Nicotine dependence, cigarettes, uncomplicated
CPT/HCPCS: 99281